=== PATIENT | male | born 1990 | race Two or more races ===

== ENCOUNTER 2017-04-19 17:57 | Emergency (ER) | payer MEDICAID, OTHER, SELFPAY ==
[~2017-04-19] VITALS: Ht 167.6 cm; Wt 56.7 kg
[2017-04-19] MEDS ORDERED: IBUP200C PO (18:02)
[2017-04-19] MEDS ORDERED: ACETAMINOPHEN 325 MG TAB PO ONE (18:30)
[2017-04-19 18:43] LABS: BASO % 0.3 % (0.0-1.0); EOS # 0.1 K/mm3 (0.0-0.50); EOS % 1.9 % (0.0-3.0); LARGE UNSTAINED CELL # 0.1 K/mm3 (0.0-0.4); LARGE UNSTAINED CELL % 1.5 % (0.0-4.0); LYMPH # 2.5 K/mm3 (1.5-6.5); LYMPH % 40.3 % (24.0-44.0); MEAN CORPUSCULAR HGB CONC 34.5 g/dl (32.0-36.5); MEAN CORPUSCULAR VOLUME 89.8 fl (80.0-96.0); MONO # 0.3 K/mm3 (0.0-0.8); MONO % 5.2 % (0.0-5.0); NEUTROPHILS # 3.2 K/mm3 (1.8-7.7); NEUTROPHILS % 50.9 % (36.0-66.0); PLATELET COUNT, AUTOMATED 317 k/mm3 (150-450); RED CELL DISTRIBUTION WIDTH 11.9 % (11.5-14.5); WHITE BLOOD COUNT 6.3 K/mm3 (4.0-10.0)
[2017-04-19 18:59] LABS: ANION GAP 6 MEQ/L (8-16); BLOOD UREA NITROGEN 6 MG/DL (7-18); CALCIUM LEVEL 8.6 MG/DL (8.5-10.1); CARBON DIOXIDE LEVEL 29 MEQ/L (21-32); CHLORIDE LEVEL 104 MEQ/L (98-107); CREATININE FOR GFR 0.84 MG/DL (0.70-1.30); GLOMERULAR FILTRATION RATE > 60.0 (>60); GLUCOSE, FASTING 151 MG/DL (70-105); POTASSIUM SERUM 3.9 MEQ/L (3.5-5.1); SODIUM LEVEL 139 MEQ/L (136-145)
--- NOTE | 2017-04-19 19:23 | REP ---
Clinical: Left groin and testicular pain. Technique: Real time pickard scale and color Doppler evaluation using linear high frequency transducer. Findings: Bilateral testicles demonstrates scattered microcalcifications and are otherwise normal in contour, size, echogenicity and vascularity. There is no evidence for intratesticular mass lesion, infectious/inflammatory process, or torsion. The bilateral epididymi are normal. No hydroceles. No varicoceles. No evidence for inguinal hernia. Two left inguinal lymph nodes measures 17 x 4 x 15 mm and 7 x 3 x 7 mm. Right testicle measures 4.6 x 2.7 x 2.9 cm. Left testicle measures 4.1 x 1.7 x 2.7 cm. Impression: Few scattered intratesticular calcifications. Otherwise normal scrotal ultrasound. Signed by Trenton Martin MD 04/19/2017 07:15 P
[2017-04-19 20:04] VITALS: BP 109/64
[2017-04-19] MEDS ORDERED: NORCOTAB PO (20:13)
--- NOTE | 2017-04-20 15:08 | ED PDOC ---
Post-Departure Follow-Up dr pretty faxed formal report of scrotal us for fu Chandrika Mullen MD April 20, 2017 15:08
== END 2017-04-19 20:18 | disposition home or self-care (01) ==
LOC: M ED 18:32
DX: N50.819 Testicular pain, unspecified (principal); F17.210 Nicotine dependence, cigarettes, uncomplicated

== ENCOUNTER → 2017-05-01 | Outpatient (CLI) | payer MEDICAID ==
[~2017-05-01] MED LIST: IBUP200C PO; ISOVUE-370 76% 100ML VIAL (Q9967) As Ordered ONE; NORCOTAB PO
--- NOTE | 2017-05-01 15:56 | REP ---
CT ABDOMEN: HISTORY: Left inguinal adenopathy and left testicular pain. CONTRAST: 100 mL Isovue-370 The lung bases are clear. The precontrast enhanced portion of the examination shows hepatic and splenic densities to be within normal limits. There are no nephroliths or choleliths. The contrast enhanced portion of the examination shows the liver, gallbladder, spleen, pancreas, adrenal glands and kidneys to be within normal limits. The abdominal aorta and periaortic regions are within normal limits. The bowel loops and their mesenteries are within normal limits. There is no free fluid or free air. There is no evidence of an intraabdominal mass or adenopathy. CT PELVIS: There is no pelvic mass or adenopathy. The bowel loops and the mesenteries appear to be within normal limits. There is no free fluid or free air. There is no evidence of inguinal adenopathy. Bone window technique throughout the exam shows the osseous structures to be within normal limits. IMPRESSION: CT findings are within normal limits. Signed by Ramy Valente DO 05/01/2017 03:57 P
== END ==
LOC: M RAD 15:01
PROVIDERS: ATTEND Nurse Practitioner Women's Health
DX: R10.30 Lower abdominal pain, unspecified (principal); N50.812 Left testicular pain; R59.0 Localized enlarged lymph nodes
CPT/HCPCS: 74178; Q9967

== ENCOUNTER → 2018-04-21 | Outpatient (REF) | payer MEDICAID, OTHER ==
[2018-04-21 12:50] LABS: BASO % 0.3 % (0.0-1.0); EOS # 0.2 10^3/uL (0.0-0.50); EOS % 3.5 % (0.0-3.0); HEMATOCRIT 46.1 % (42.0-52.0); HEMOGLOBIN 15.7 g/dl (13.5-17.5); IMMATURE GRANULOCYTE % 0.2 % (0-3.0); LYMPH % 33.7 % (24.0-44.0); MEAN CORPUSCULAR HGB CONC 34.1 g/dl (32.0-36.5); MONO # 0.4 10^3/uL (0.0-0.8); MONO % 7.3 % (0.0-5.0); NEUTROPHILS # 3.3 10^3/uL (1.8-7.7); PLATELET COUNT, AUTOMATED 321 10^3/uL (150-450); RED BLOOD COUNT 5.24 10^6/uL (4.30-6.10); RED CELL DISTRIBUTION WIDTH 12.3 % (11.5-14.5); WHITE BLOOD COUNT 6.1 10^3/uL (4.0-10.0)
[2018-04-21 12:58] LABS: APPEARANCE, URINE CLEAR (CLEAR); BACTERIA, URINE AUTO NEGATIVE (NEGATIVE); BILIRUBIN, URINE AUTO NEGATIVE (NEGATIVE); BLOOD, URINE BLOOD NEGATIVE (NEGATIVE); COLOR, URINE STRAW (YELLOW); GLUCOSE, URINE (UA) AUTO NEGATIVE (NEGATIVE); KETONE, URINE AUTO NEGATIVE (NEGATIVE); LEUKOCYTE ESTERASE, URINE AUTO NEGATIVE (NEGATIVE); NITRITE, URINE AUTO NEGATIVE (NEGATIVE); PROTEIN, URINE AUTO NEGATIVE (NEGATIVE); RBC, URINE AUTO 0 /HPF (0-3); SPECIFIC GRAVITY URINE AUTO 1.006 (1.002-1.035); SQUAMOUS EPITHELIAL CELL UR AU 0 /HPF (0-6); UROBILINOGEN, URINE AUTO 0.2 mg/dL (0.0-2.0); WBC, URINE AUTO 1 /HPF (0-3)
[2018-04-21 13:48] LABS: ALBUMIN 4.3 GM/DL (3.2-5.2); ALBUMIN/GLOBULIN RATIO 1.23 (1.00-1.93); ALKALINE PHOSPHATASE 88 U/L (45-117); ALT/SGPT 25 U/L (12-78); ANION GAP 5 MEQ/L (8-16); AST/SGOT 25 U/L (7-37); BILIRUBIN,TOTAL 0.3 MG/DL (0.2-1.0); BLOOD UREA NITROGEN 5 MG/DL (7-18); CALCIUM LEVEL 9.6 MG/DL (8.5-10.1); CARBON DIOXIDE LEVEL 30 MEQ/L (21-32); CHLORIDE LEVEL 107 MEQ/L (98-107); CHOLESTEROL LEVEL 154 MG/DL (<200); CHOLESTEROL RISK RATIO 3.666 (<5); CREATININE FOR GFR 0.69 MG/DL (0.70-1.30); GLOMERULAR FILTRATION RATE > 60.0 (>60); GLUCOSE, FASTING 93 MG/DL (70-100); HDL CHOLESTEROL 42 MG/DL (>40); LDL CHOLESTEROL 89.8 MG/DL (<100); NON-HDL-C 112 MG/DL; POTASSIUM SERUM 4.7 MEQ/L (3.5-5.1); SODIUM LEVEL 142 MEQ/L (136-145); TOTAL PROTEIN 7.8 GM/DL (6.4-8.2); TRIGLYCERIDES LEVEL 111 MG/DL (<150)
[2018-04-22 10:40] LABS: HIV 1&2 SCREEN CENTAUR NEGATIVE (NEGATIVE)
== END ==
LOC: M LAB REF 11:58
DX: R39.15 Urgency of urination (principal); R53.83 Other fatigue; Z13.220 Encounter for screening for lipoid disorders

== ENCOUNTER → 2019-10-07 | Outpatient (REF) | payer OTHER, MEDICAID ==
[~2019-10-07] MED LIST changes: +HYDR-3715 PO; -IBUP200C PO; +IBUP200C25 PO; -ISOVUE-370 76% 100ML VIAL (Q9967) As Ordered ONE; -NORCOTAB PO
[2019-10-07 17:10] LABS: BASO % 0.6 % (0.0-1.0); EOS # 0.2 10^3/uL (0.0-0.5); EOS % 3.4 % (0.0-3.0); HEMOGLOBIN 14.8 g/dl (13.5-17.5); LYMPH # 2.1 10^3/uL (1.5-5.0); LYMPH % 34.4 % (24.0-44.0); MEAN CORPUSCULAR HEMOGLOBIN 30.2 pg (27.0-33.0); MEAN CORPUSCULAR HGB CONC 33.6 g/dl (32.0-36.5); MEAN CORPUSCULAR VOLUME 89.8 fl (80.0-96.0); MONO # 0.5 10^3/uL (0.0-0.8); MONO % 8.8 % (0.0-5.0); NEUTROPHILS # 3.2 10^3/uL (1.5-8.5); NEUTROPHILS % 52.6 % (36.0-66.0); PLATELET COUNT, AUTOMATED 265 10^3/uL (150-450); WHITE BLOOD COUNT 6.2 10^3/uL (4.0-10.0)
[2019-10-07 17:21] LABS: ALBUMIN 3.8 GM/DL (3.2-5.2); ALT/SGPT 25 U/L (12-78); BILIRUBIN,TOTAL 0.3 MG/DL (0.2-1.0); BLOOD UREA NITROGEN 6 MG/DL (7-18); CALCIUM LEVEL 9.2 MG/DL (8.5-10.1); CARBON DIOXIDE LEVEL 33 MEQ/L (21-32); CHLORIDE LEVEL 106 MEQ/L (98-107); CHOLESTEROL LEVEL 172 MG/DL (<200); CREATININE FOR GFR 0.72 MG/DL (0.70-1.30); FREE T4 0.99 NG/DL (0.76-1.46); GLOMERULAR FILTRATION RATE > 60.0 (>60); GLUCOSE, FASTING 95 MG/DL (70-100); HDL CHOLESTEROL 40 MG/DL (>40); LDL CHOLESTEROL 96 MG/DL (<100); NON-HDL-C 132 MG/DL; POTASSIUM SERUM 4.5 MEQ/L (3.5-5.1); SODIUM LEVEL 139 MEQ/L (136-145); TOTAL 25(OH) VITAMIN D 13.4 NG/ML (30.0-100.0); TOTAL PROTEIN 7.3 GM/DL (6.4-8.2); TRIGLYCERIDES LEVEL 178 MG/DL (<150)
[2019-10-07 17:25] LABS: HEMOGLOBIN A1c 5.3 %
== END ==
LOC: M LAB REF 16:01
PROVIDERS: ATTEND Family Medicine
DX: Z13.228 Encounter for screening for other metabolic disorders (principal)

== ENCOUNTER → 2019-12-13 | Outpatient (CLI) | payer OTHER, MEDICAID ==
[~2019-12-13] MED LIST changes: +BUPIVACAINE HCL 0.25% 30 ML VIAL As Ordered ONE; +NORCO, ANEXSIA 5/325MG TABLET (HYDROcodone/ACETAMINOPHEN) As Ordered ONE; +TRIAMCINOLONE ACETONIDE SUSP 40 MG/ML VIAL (J3301) As Ordered ONE; +diazePAM 5 MG TAB As Ordered ONE
--- NOTE | 2019-12-24 04:19 | ECWPNPC ---
PATIENT NAME: ROSEMARIE BLAND : 1990 GENDER: MALE VISIT DATE: 12/13/2019 DISCHARGE DATE: 12/13/19 1223 VISIT LOCKED DATE TIME: PHYSICIAN: MARV CAMACHO MD RESOURCE: MARV CAMACHO MD REASON FOR APPOINTMENT 1. TPI BILAT NECK HISTORY OF PRESENT ILLNESS HISTORY OF PRESENT ILLNESS: PAIN THE PATIENT DESCRIBES THE PAIN... FALL RISK SCREENING: SCREENING :NO FALLS REPORTED IN THE LAST YEAR CURRENT MEDICATIONS TAKING MOBIC 7.5 MG TABLET 1 TABLET ORALLY ONCE A DAY, NOTES: 12/12/19 1800 TAKING DEPAKOTE 500 MG TABLET DELAYED RELEASE 1 TABLET ORALLY TWICE A DAY, NOTES: 12/12/19 1800 NOT-TAKING NAPROXEN SODIUM 550 MG TABLET 1 TABLET ORALLY TWICE A DAY NOT-TAKING BACTRIM DS 800-160 TABLET 1 TABLET ORALLY TWICE A DAY NOT-TAKING NAPROXEN 500 MG TABLET 1 TABLET NEEDED ORALLY EVERY 12 HRS NOT-TAKING IBUPROFEN 200 MG TABLET 1 TABLET WITH FOOD OR MILK NEEDED ORALLY EVERY 6 HRS MEDICATION LIST REVIEWED AND RECONCILED WITH THE PATIENT PAST MEDICAL HISTORY MEMORY IMPAIRMENT INJURY OF BLOOD VESSELS OF HEAD, NEC, SUBS TRANSIENT ALTERATION OF AWARENESS SYNCOPE AND COLLAPSE CERVICALGIA BILAT CARPAL TUNNEL SYNDROME SLEEP DISORDER ALLERGIES N.K.D.A. SURGICAL HISTORY RIGHT WRIST CYST DOUBLE HERIA SURGERY INFANT RIGHT WRIST CYST REMOVED 2003 & 2006 FAMILY HISTORY FATHER: ALIVE MOTHER: ALIVE, DIAGNOSED WITH UNSPECIFIED CEREBRAL ARTERY OCCLUSION WITH CEREBRAL INFARCTION SIBLINGS: OVARIAN CANCER PATERNAL GRAND FATHER: PROSTATE, OTHER MALIGNANT NEOPLASM OF UNSPECIFIED SITE 2 SISTER(S) . SOCIAL HISTORY GENERAL: TOBACCO USE ARE YOU A:CURRENT SMOKER ARE YOU INTERESTED IN QUITTING?NOT READY TO QUIT COUNSELED THE PATIENT ON SMOKING EFFECTS, EDUCATION [id number]/09/2020 HOW MANY CIGARETTES A DAY DO YOU SMOKE?6-10 PATIENT COUNSELED ON THE DANGERS OF TOBACCO USE AND URGED TO QUIT:12/09/2019 PAIN CLINIC PFS, CLERGY, PUBLIC HEALTH REFERRALS HAS THE PATIENT BEEN EDUCATED REGARDING HIS/HER PLAN OF CARE?YES HAS THE PATIENT BEEN EDUCATED REGARDING PAIN, THE RISK FOR PAIN, THE IMPORTANCE OF EFFECTIVE PAIN MANAGEMENT, AND THE PAIN ASSESSMENT PROCESS?YES CAFFEINE CAFFEINE USE?YES HOW OFTEN AND HOW MUCH? 36OZ COFFEE A DAY ADVANCE DIRECTIVE ADVANCE DIRECTIVE DISCUSSED WITH PATIENT:YES DECLINED SIKHISM [id number] NONE LANGUAGE LANGUAGES SPOKEN:[place] DOMESTIC VIOLENCE DO YOU FEEL SAFE IN YOUR ENVIRONMENT?YES ALCOHOL SCREENING DID YOU HAVE A DRINK CONTAINING ALCOHOL IN THE PAST YEAR?YES HOW OFTEN DID YOU HAVE SIX OR MORE DRINKS ON ONE OCCASION IN THE PAST YEAR?NEVER (0 POINTS) HOW MANY DRINKS DID YOU HAVE ON A TYPICAL DAY WHEN YOU WERE DRINKING IN THE PAST YEAR?1 OR 2 (0 POINTS) HOW OFTEN DID YOU HAVE A DRINK CONTAINING ALCOHOL IN THE PAST YEAR?MONTHLY OR LESS (1 POINT) POINTS1 INTERPRETATIONNEGATIVE RECREATIONAL DRUG USE DRUG USE?YES HOW OFTEN AND HOW MUCH? CLEMENTE LEARNING BARRIERS / SPECIAL NEEDS BARRIERS TO LEARNING?YES COMMENTS LIMITED READING ABILITY HEARING IMPAIRED?YES VISION IMPAIRED?NO COGNITIVELY IMPAIRED?NO :HEARING AIDES READINESS TO LEARN?YES LEARNING PREFERENCES?YES :BOOKLETS, HANDOUTS, DEMONSTRATION/VERBAL INSTRUCTION LEARNING CAPABILITIES PRESENT?YES EMOTIONAL BARRIERS?NO SPECIAL DEVICES?NO PRE PROCEDURE PHONE CALL COMPLETED 12/09/19 [id number] NL. HOSPITALIZATION/MAJOR DIAGNOSTIC PROCEDURE NO HOSPITALIZATION HISTORY. REVIEW OF SYSTEMS REVIEWED BY: PROVIDER: . CONSTITUTIONAL: ANY CHANGE IN YOUR MEDICAL CONDITION? NO . CHILLS NO . FEVER NO . INFECTION: DO YOU HAVE NEW INFECTIONS? NO . DO YOU HAVE HISTORY OF MRSA? NO . MUSCULOSKELETAL: ANY NEW PATTERNS OF PAIN OR NUMBNESS? NO . GASTROENTEROLOGY: ANY NEW CHANGE IN BOWEL CONTROL? NO . GENITOURINARY: ANY NEW CHANGE IN BLADDER CONTROL? NO . IS THERE A CHANCE YOU COULD BE ? NO . HEMATOLOGY/LYMPH: DO YOU TAKE ANY BLOOD THINNERS? (FOR EXAMPLE- COUMADIN, PLAVIX, AGGRENOX, PLATEL, PRADAXA, OR XARELTO) NO . WHEN WAS YOUR LAST DOSE? DATE: TIME: . NEUROLOGY: HAVE YOU FALLEN IN THE PAST 12 MONTHS? NO . ANY NEW EXTREMITY NUMBNESS OR WEAKNESS? NO . CARDIOLOGY: DO YOU HAVE A PACEMAKER OR DEFIBRILLATOR? NO . RESPIRATORY: HAVE YOU BEEN SICK IN THE PAST WEEK? NO . FEVER NO . FLU LIKE SYMPTOMS? NO . COUGH NO . INTEGUMENTARY: DO YOU HAVE ANY RASHES OR OPEN SORES? NO . ALLERGIC/IMMUNO: ARE YOU ALLERGIC TO IV DYE? NO . ANY NEW ALLERGIES? NO . PSYCHIATRIC: DO YOU HAVE THOUGHTS OF HURTING YOURSELF OR SOMEONE ELSE? NO . ARE YOU ABUSED, NEGLECTED, OR IN AN UNSAFE ENVIRONMENT? NO . ENDOCRINOLOGY: ARE YOU DIABETIC? NO . OTHER: DO YOU NEED ANY PRESCRIPTIONS? NO . IF YES, PLEASE LIST: ____ . ANY NEW PROBLEMS WITH YOUR MEDICATIONS? NO . WHEN DID YOU LAST EAT? 12/12/19 1730 . WHEN DID YOU LAST DRINK? 12/13/19 0700 . WHAT DID YOU LAST DRINK? WATER . NAME OF PERSON DRIVING YOU HOME? GRIFFIN BLNAD- MOTHER . DO YOU HAVE ANY OTHER QUESTIONS OR CONCERNS NO . VITAL SIGNS WT 135 LBS, HT 67 IN, BMI 21.14 INDEX, BP 113/67 MM HG, HR 74 /MIN, RR 16 /MIN, TEMP 97.9 F, OXYGEN SAT % 100%, SAFE IN ENV? (Y/N) YES, NA INITIALS SC 10:39, REVIEWED BY: CAYLA. ASSESSMENTS MYALGIA, OTHER SITE - M79.18 (PRIMARY) PROCEDURES PN TRIGGER POINT INJECTION WITH STEROIDS PRE PROCEDURE DIAGNOSIS 1. MYALGIA 2. PAIN AT BILATERAL NECK AREA POST PROCEDURE DIAGNOSIS 1. MYALGIA 2. PAIN AT BILATERAL NECK AREA PROCEDURE TRIGGER POINT INJECTION AT RIGHT AND LEFT NECK AREA SURGEON DR. MARV CAMACHO CAST IRON DIPPER NONE ANESTHESIA LOCAL PRE PROCEDURE NOTE THE PATIENT HAS A HISTORY OF CHRONIC PAIN AT THE RIGHT AND LEFT NECK AREA. I EVALUATED THE PATIENT AND REVIEWED THE CHART. THERE IS EVIDENCE OF BANDS OF TISSUE WITH RESTRICTION OF MOVEMENT AND PRESENCE OF TRIGGER POINT AT THE AFFECTED AREA. I WENT OVER THE RISKS, ALTERNATIVES, AND BENEFITS ASSOCIATED WITH THIS PROCEDURE. THE PATIENT WOULD LIKE TO PROCEED AND GIVES CONSENT TO PERFORM THE PROCEDURE. THE PATIENT DENIES UNEXPLAINABLE WEIGHT LOSS, FEVER, CHILLS, OR NEW CHANGES IN URINARY OR BOWEL CONTROL DESCRIPTION OF PROCEDURE THE PATIENT WAS BROUGHT TO THE PROCEDURE ROOM AND PLACED IN THE SITTING POSITION. THE AREA WAS CLEANED WITH ALCOHOL. THE PROCEDURE WAS DONE USING ASEPTIC STERILE TECHNIQUE. I CHECKED LATERALITY AND THE LEVEL WHERE THE PROCEDURE WAS GOING TO BE PERFORMED WITH THE PATIENT AND THE SUPPORTING STAFF AT THE MOMENT OF THE TIME OUT IN THE PROCEDURE ROOM. USING A 25-GAUGE NEEDLE, TRIGGER POINTS WERE INJECTED AT THE LEFT NECK AREA AND RIGHT NECK AREA WITH A TOTAL OF 40 ML OF BUPIVACAINE 0.25% AND KENALOG 40 MG. THERE WAS NO EVIDENCE OF BLOOD, PARESTHESIA OR CEREBROSPINAL FLUID DURING THE PROCEDURE. THE PATIENT WAS SENT TO THE RECOVERY ROOM. THE PATIENT WAS MOVING THE EXTREMITIES AND DOING WELL. THERE WAS NO COMPLICATION DURING THE PROCEDURE POST PROCEDURE NOTE THE PATIENT WILL BE SEEN IN A FOLLOWUP IN THE NEXT FEW WEEKS. I AM LOOKING FOR LONG-LASTING PAIN RELIEF WITH THIS INTERVENTION. INSTRUCTIONS WERE GIVEN, QUESTIONS WERE ANSWERED, AND THE PATIENT EXPRESSED UNDERSTANDING AND AGREES WITH THE PLAN. I, RAVEN ROCKWELL, DOCUMENTED THE ABOVE INFORMATION ACTING A SCRIBE FOR DR. CAMACHO. I HAVE REVIEWED THE ABOVE DOCUMENT, WRITTEN BY JESUS DURAN, AND I VERIFY THAT IT IS ACCURATE PROCEDURE CODES 92389 INJECT TRIGGER POINT, 1 OR 2 DISPOSITION & COMMUNICATION FOLLOW UP 3 WEEKS ELECTRONICALLY SIGNED BY MARV CAMACHO MD, MD ON 12/23/2019 AT 10:23 AM EST DISCLAIMER : THIS IS A VISIT SUMMARY EXTRACTED FROM THE [email or web address] CHART. IT IS NOT A COPY OF THE [email or web address] PROGRESS NOTE. MARINA
== END ==
LOC: M PAIN 10:30
PROVIDERS: ATTEND Anesthesiology
DX: M79.18 Myalgia, other site (principal); F17.210 Nicotine dependence, cigarettes, uncomplicated; Z79.899 Other long term (current) drug therapy
CPT/HCPCS: 20552; J3301

== ENCOUNTER → 2019-12-30 | Outpatient (CLI) | payer OTHER, MEDICAID ==
[~2019-12-30] MED LIST changes: -BUPIVACAINE HCL 0.25% 30 ML VIAL As Ordered ONE; -NORCO, ANEXSIA 5/325MG TABLET (HYDROcodone/ACETAMINOPHEN) As Ordered ONE; -TRIAMCINOLONE ACETONIDE SUSP 40 MG/ML VIAL (J3301) As Ordered ONE; -diazePAM 5 MG TAB As Ordered ONE
--- NOTE | 2020-01-01 07:43 | ECWPNPC ---
PATIENT NAME: ROSEMARIE BLAND : 1990 GENDER: MALE VISIT DATE: 12/30/2019 DISCHARGE DATE: 12/30/19 1022 VISIT LOCKED DATE TIME: PHYSICIAN: JUSTICE GUEVARA RESOURCE: JUSTICE GUEVARA REASON FOR APPOINTMENT 1. POST TPI HISTORY OF PRESENT ILLNESS HISTORY OF PRESENT ILLNESS: HERE FOR POST PROCEDURE F/U.HAD BILAT. TPI NECK ON 12/13/2019.REPORTING MARKED REDUCTION IN PAIN THAT CONTINUES TODAY.HAS YET TO ATTEND PT.I WILL GIVE HIM ANOTHER PRESCRIPTION FOR THIS TODAY.RATING PAIN VAS 4/10. PAIN THE PATIENT DESCRIBES THE PAIN... FALL RISK SCREENING: SCREENING :NO FALLS REPORTED IN THE LAST YEAR GENERAL: -. PAIN SCREENING: PATIENT HAS A COMPLAINT OF ACUTE OR CHRONIC PAIN :YES LOCATION OF PAIN:NECK INTENSITY OF PAIN (SCALE OF 1 TO 10):4 NURSING NOTE: -. CURRENT MEDICATIONS TAKING MOBIC 7.5 MG TABLET 1 TABLET ORALLY ONCE A DAY, NOTES: 12/12/19 1800 TAKING DEPAKOTE 500 MG TABLET DELAYED RELEASE 1 TABLET ORALLY TWICE A DAY, NOTES: 12/12/19 1800 TAKING CYMBALTA 20 MG CAPSULE DELAYED RELEASE PARTICLES 1 CAPSULE ORALLY ONCE A DAY NOT-TAKING NAPROXEN SODIUM 550 MG TABLET 1 TABLET ORALLY TWICE A DAY NOT-TAKING BACTRIM DS 800-160 TABLET 1 TABLET ORALLY TWICE A DAY NOT-TAKING NAPROXEN 500 MG TABLET 1 TABLET NEEDED ORALLY EVERY 12 HRS NOT-TAKING IBUPROFEN 200 MG TABLET 1 TABLET WITH FOOD OR MILK NEEDED ORALLY EVERY 6 HRS MEDICATION LIST REVIEWED AND RECONCILED WITH THE PATIENT PAST MEDICAL HISTORY MEMORY IMPAIRMENT INJURY OF BLOOD VESSELS OF HEAD, NEC, SUBS TRANSIENT ALTERATION OF AWARENESS SYNCOPE AND COLLAPSE CERVICALGIA BILAT CARPAL TUNNEL SYNDROME SLEEP DISORDER ANXIETY ALLERGIES N.K.D.A. SURGICAL HISTORY RIGHT WRIST CYST DOUBLE HERIA SURGERY RIGHT WRIST CYST REMOVED 2003 & 2006 FAMILY HISTORY FATHER: ALIVE MOTHER: ALIVE, DIAGNOSED WITH UNSPECIFIED CEREBRAL ARTERY OCCLUSION WITH CEREBRAL INFARCTION SIBLINGS: OVARIAN CANCER PATERNAL GRAND FATHER: PROSTATE, OTHER MALIGNANT NEOPLASM OF UNSPECIFIED SITE 2 SISTER(S) . SOCIAL HISTORY GENERAL: TOBACCO USE ARE YOU A:CURRENT SMOKER HOW MANY CIGARETTES A DAY DO YOU SMOKE?6-10 ARE YOU INTERESTED IN QUITTING?NOT READY TO QUIT PATIENT COUNSELED ON THE DANGERS OF TOBACCO USE AND URGED TO QUIT:12/09/2019 COUNSELED THE PATIENT ON SMOKING EFFECTS, EDUCATION [id number]/09/2020 PAIN CLINIC PFS, CLERGY, PUBLIC HEALTH REFERRALS HAS THE PATIENT BEEN EDUCATED REGARDING HIS/HER PLAN OF CARE?YES HAS THE PATIENT BEEN EDUCATED REGARDING PAIN, THE RISK FOR PAIN, THE IMPORTANCE OF EFFECTIVE PAIN MANAGEMENT, AND THE PAIN ASSESSMENT PROCESS?YES CAFFEINE CAFFEINE USE?YES HOW OFTEN AND HOW MUCH? 36OZ COFFEE A DAY ADVANCE DIRECTIVE ADVANCE DIRECTIVE DISCUSSED WITH PATIENT:YES DECLINED ORTHODOXY [id number] NONE LANGUAGE LANGUAGES SPOKEN:[place] DOMESTIC VIOLENCE DO YOU FEEL SAFE IN YOUR ENVIRONMENT?YES ALCOHOL SCREENING DID YOU HAVE A DRINK CONTAINING ALCOHOL IN THE PAST YEAR?YES HOW OFTEN DID YOU HAVE SIX OR MORE DRINKS ON ONE OCCASION IN THE PAST YEAR?NEVER (0 POINTS) HOW MANY DRINKS DID YOU HAVE ON A TYPICAL DAY WHEN YOU WERE DRINKING IN THE PAST YEAR?1 OR 2 (0 POINTS) HOW OFTEN DID YOU HAVE A DRINK CONTAINING ALCOHOL IN THE PAST YEAR?MONTHLY OR LESS (1 POINT) POINTS1 INTERPRETATIONNEGATIVE RECREATIONAL DRUG USE DRUG USE?YES HOW OFTEN AND HOW MUCH? CLEMENTE LEARNING BARRIERS / SPECIAL NEEDS BARRIERS TO LEARNING?YES COMMENTS LIMITED READING ABILITY HEARING IMPAIRED?YES VISION IMPAIRED?NO COGNITIVELY IMPAIRED?NO :HEARING AIDES READINESS TO LEARN?YES LEARNING PREFERENCES?YES :BOOKLETS, HANDOUTS, DEMONSTRATION/VERBAL INSTRUCTION LEARNING CAPABILITIES PRESENT?YES EMOTIONAL BARRIERS?NO SPECIAL DEVICES?NO PRE PROCEDURE PHONE CALL COMPLETED 12/09/19 [id number] [facility]. HOSPITALIZATION/MAJOR DIAGNOSTIC PROCEDURE DENIES PAST HOSPITALIZATION REVIEW OF SYSTEMS REVIEWED BY: PROVIDER: JUSTICE ESPINOZA . CONSTITUTIONAL: ANY CHANGE IN YOUR MEDICAL CONDITION? YES, CYMBALTA PRESCRIBED FOR ANXIETY . CHILLS NO . FEVER NO . INFECTION: DO YOU HAVE NEW INFECTIONS? NO . DO YOU HAVE HISTORY OF MRSA? NO . MUSCULOSKELETAL: ANY NEW PATTERNS OF PAIN OR NUMBNESS? NO . GASTROENTEROLOGY: ANY NEW CHANGE IN BOWEL CONTROL? NO . GENITOURINARY: ANY NEW CHANGE IN BLADDER CONTROL? NO . IS THERE A CHANCE YOU COULD BE ? NO . HEMATOLOGY/LYMPH: DO YOU TAKE ANY BLOOD THINNERS? (FOR EXAMPLE- COUMADIN, PLAVIX, AGGRENOX, PLATEL, PRADAXA, OR XARELTO) NO . WHEN WAS YOUR LAST DOSE? DATE: TIME: . NEUROLOGY: HAVE YOU FALLEN IN THE PAST 12 MONTHS? YES, PRIOR TO LAST VISIT . ANY NEW EXTREMITY NUMBNESS OR WEAKNESS? NO . CARDIOLOGY: DO YOU HAVE A PACEMAKER OR DEFIBRILLATOR? NO . RESPIRATORY: HAVE YOU BEEN SICK IN THE PAST WEEK? NO . FEVER YES, RESOLVING . FLU LIKE SYMPTOMS? NO . COUGH YES, RESOLVING . INTEGUMENTARY: DO YOU HAVE ANY RASHES OR OPEN SORES? NO . ALLERGIC/IMMUNO: ARE YOU ALLERGIC TO IV DYE? NO . ANY NEW ALLERGIES? NO . PSYCHIATRIC: DO YOU HAVE THOUGHTS OF HURTING YOURSELF OR SOMEONE ELSE? NO . ARE YOU ABUSED, NEGLECTED, OR IN AN UNSAFE ENVIRONMENT? NO . ENDOCRINOLOGY: ARE YOU DIABETIC? NO . OTHER: DO YOU NEED ANY PRESCRIPTIONS? YES, MUSCLE RELAXER? . IF YES, PLEASE LIST: ____ . ANY NEW PROBLEMS WITH YOUR MEDICATIONS? NO . WHEN DID YOU LAST EAT? ____ . WHEN DID YOU LAST DRINK? ____ . WHAT DID YOU LAST DRINK? ____ . NAME OF PERSON DRIVING YOU HOME? ____ . DO YOU HAVE ANY OTHER QUESTIONS OR CONCERNS NO . VITAL SIGNS WT 130.4 LBS, HT 67 IN, BMI 20.42 INDEX, BP 134/70 MM HG, HR 91 /MIN, RR 20 /MIN, TEMP 98.3 F, OXYGEN SAT % 98, SAFE IN ENV? (Y/N) YES, PAIN SCALE 4A. PATRICIA SANDOVAL. EXAMINATION GENERAL: EXAM DEFERRED DUE TO ILLNESS. ASSESSMENTS MYALGIA, OTHER SITE - M79.18 (PRIMARY) TREATMENT MYALGIA, OTHER SITE NOTES: PT 2X WK X6 WK-MYOFASCIAL RELEASE -NECK-DX MYOFASCIAL PAIN SYNDROME. PROCEDURE CODES FA211 ESTABILISHED PATIENT [facility] CHARGE DISPOSITION & COMMUNICATION FOLLOW UP 2 MONTHS (REASON: F/U PT) ELECTRONICALLY SIGNED BY ALEXIS TAMEZ ON 12/31/2019 AT 09:04 AM EST DISCLAIMER : THIS IS A VISIT SUMMARY EXTRACTED FROM THE [employer] CHART. IT IS NOT A COPY OF THE [employer] PROGRESS NOTE. MARINA
== END ==
LOC: M PAIN 09:30
PROVIDERS: ATTEND Nurse Practitioner Family
DX: M79.18 Myalgia, other site (principal); Z86.59 Personal history of other mental and behavioral disorders; F17.210 Nicotine dependence, cigarettes, uncomplicated; Z79.899 Other long term (current) drug therapy

== ENCOUNTER → 2020-04-10 | Outpatient (CLI) | payer OTHER, MEDICAID ==
--- NOTE | 2020-04-12 04:07 | ECWPNPC ---
PATIENT NAME: ROSEMARIE BLAND : 1990 GENDER: MALE VISIT DATE: 04/10/2020 DISCHARGE DATE: 04/10/20 1048 VISIT LOCKED DATE TIME: PHYSICIAN: JUSTICE GUEVARA RESOURCE: JUSTICE GUEVARA REASON FOR APPOINTMENT 1. PREPROCEDURE 4-6 WEEKS- PRE VISIT PHONE CALL COMPLETED HISTORY OF PRESENT ILLNESS HISTORY OF PRESENT ILLNESS: HERE FOR PREPROCEDURE VISIT. CONTINUES WITH NECK PAIN. ATTENDING PHYSICAL THERAPY THAT HE FINDS SOMEWHAT HELPFUL. STATES LEFT SIDE OF NECK IS ALSO INVOLVED NOW. RATING PAIN LEVEL A 6/10 VAS. HAS RESPONDED WELL TO TRIGGER POINT INJECTIONS IN THE PAST. DISCUSSED MEDICATION AND TREATMENT OPTIONS. PAIN THE PATIENT DESCRIBES THE PAIN... FALL RISK SCREENING: SCREENING :NO FALLS REPORTED IN THE LAST YEAR CURRENT MEDICATIONS TAKING MOBIC 7.5 MG TABLET 1 TABLET ORALLY ONCE A DAY TAKING DEPAKOTE 500 MG TABLET DELAYED RELEASE 1 TABLET ORALLY TWICE A DAY TAKING CYMBALTA 30 MG CAPSULE DELAYED RELEASE PARTICLES 1 CAPSULE ORALLY ONCE A DAY NOT-TAKING NAPROXEN SODIUM 550 MG TABLET 1 TABLET ORALLY TWICE A DAY NOT-TAKING BACTRIM DS 800-160 TABLET 1 TABLET ORALLY TWICE A DAY NOT-TAKING NAPROXEN 500 MG TABLET 1 TABLET NEEDED ORALLY EVERY 12 HRS NOT-TAKING IBUPROFEN 200 MG TABLET 1 TABLET WITH FOOD OR MILK NEEDED ORALLY EVERY 6 HRS MEDICATION LIST REVIEWED AND RECONCILED WITH THE PATIENT PAST MEDICAL HISTORY MEMORY IMPAIRMENT INJURY OF BLOOD VESSELS OF HEAD, NEC, SUBS TRANSIENT ALTERATION OF AWARENESS SYNCOPE AND COLLAPSE CERVICALGIA BILAT CARPAL TUNNEL SYNDROME SLEEP DISORDER ANXIETY ALLERGIES CHLORINE: EYEDAMAGE - SIDE EFFECTS SURGICAL HISTORY RIGHT WRIST CYST DOUBLE HERNIA SURGERY RIGHT WRIST CYST REMOVED 2003 & 2006 FAMILY HISTORY FATHER: ALIVE MOTHER: ALIVE, DIAGNOSED WITH UNSPECIFIED CEREBRAL ARTERY OCCLUSION WITH CEREBRAL INFARCTION SIBLINGS: OVARIAN CANCER PATERNAL GRAND FATHER: PROSTATE, OTHER MALIGNANT NEOPLASM OF UNSPECIFIED SITE 2 SISTER(S) . SOCIAL HISTORY GENERAL: TOBACCO USE ARE YOU A:CURRENT SMOKER ARE YOU INTERESTED IN QUITTING?THINKING ABOUT QUITTING HOW MANY CIGARETTES A DAY DO YOU SMOKE?6-10 PATIENT COUNSELED ON THE DANGERS OF TOBACCO USE AND URGED TO QUIT:04/07/2020 LATEX QUESTIONNAIRE LATEX ALLERGY : HAVE YOU EVER DEVELOPED ANY TYPE OF REACTION AFTER HANDLING LATEX PRODUCTS SUCH RUBBER GLOVES, CONDOMS, DIAPHRAGMS, BALLOONS, SOCKS, OR UNDERWEAR?NO LATEX ALLERGY : HAVE YOU EVER DEVELOPED ANY TYPE OF REACTION DURING OR AFTER DENTAL APPOINTMENT, VAGINAL/RECTAL EXAMINATION, SURGICAL PROCEDURE, OR ANY OTHER EXPOSURE?NO LATEX RISK : HAVE YOU EVER HAD ANY DIFFICULTY BREATHING OR HIVES AFTER EATING OR HANDLING ANY FRUITS, OR VEGETABLES; SUCH KIWI, BANANAS, STONE FRUITS, OR CHESTNUTSNO LATEX RISK : DO YOU HAVE A PREVIOUS PERSONAL HISTORY OF MORE THAN NINE SURGERIES, SPINA BIFIDA, OR REPEATED CATHERIZATIONS? NO LATEX RISK : ARE YOU FREQUENTLY EXPOSED TO LATEX PRODUCTS IN YOUR OCCUPATION?NO DATE ASKED : 04/07/2020 ALCOHOL SCREENING DID YOU HAVE A DRINK CONTAINING ALCOHOL IN THE PAST YEAR?YES HOW OFTEN DID YOU HAVE A DRINK CONTAINING ALCOHOL IN THE PAST YEAR?MONTHLY OR LESS (1 POINT) HOW MANY DRINKS DID YOU HAVE ON A TYPICAL DAY WHEN YOU WERE DRINKING IN THE PAST YEAR?1 OR 2 (0 POINTS) HOW OFTEN DID YOU HAVE SIX OR MORE DRINKS ON ONE OCCASION IN THE PAST YEAR?NEVER (0 POINTS) POINTS1 INTERPRETATIONNEGATIVE RECREATIONAL DRUG USE DRUG USE?YES HOW OFTEN AND HOW MUCH? MARIJIANA- DAILY CAFFEINE CAFFEINE USE?YES HOW OFTEN AND HOW MUCH? 36OZ COFFEE A DAY CHURCH [id number] NONE LANGUAGE LANGUAGES SPOKEN:BRITISH VIRGIN ISLANDER LEARNING BARRIERS / SPECIAL NEEDS BARRIERS TO LEARNING?YES COMMENTS LIMITED READING ABILITY HEARING IMPAIRED?YES VISION IMPAIRED?NO COGNITIVELY IMPAIRED?NO :HEARING AIDES READINESS TO LEARN?YES LEARNING PREFERENCES?YES :BOOKLETS, HANDOUTS, DEMONSTRATION/VERBAL INSTRUCTION LEARNING CAPABILITIES PRESENT?YES EMOTIONAL BARRIERS?NO SPECIAL DEVICES?NO DOMESTIC VIOLENCE DO YOU FEEL SAFE IN YOUR ENVIRONMENT?YES NEW PATIENT PAIN DIARY TODAY'S VISITNOTES 04/07/2020 PATIENT DESCRIBES PAIN :ACHING, IT COMES AND GOES FROM 0-10, WHAT LEVEL IS YOUR PAIN TODAY?3 PRECIPITATING FACTORS NOTHING ALLEVIATING FACTORS LAYING DOWN HAVE YOU BEEN SICK IN THE LAST WEEK (COLD, COUGH, FEVER, FLU, ETC)YES HAD A STOMACH BUG YESTERDAY DO YOU HAVE ANY RASHES OR OPEN SORES?NO ANY CHANGE IN BOWEL OR BLADDER CONTROL?NO ARE YOU ALLERGIC TO SHELLFISH OR IV DYE?NO ARE YOU DIABETIC?NO DO YOU HAVE A PACEMAKER OR DEFIBRILLATOR?NO ANY NEW PROBLEMS WITH MEDICINES OR NEW ALLERGIESNO WILL BE DISCUSSING CYMBALTA WITH JOSE WAITE DUE TO SHAKINESS IN HANDS ANY NEW PATTERNS OF PAIN OR NUMBNESS?NO ANY CHANGE IN YOUR MEDICAL CONDITION?NO HAVE YOU FALLEN IN THE LAST 6 MONTHS?YES DO YOU USE ANY TYPE OF TOBACCO (SMOKE, SMOKELESS, CHEW, ETC.)YES ARE YOU ABUSED, NEGLECTED, OR IN AN UNSAFE ENVIRONMENT?NO DO YOU HAVE THOUGHTS OF HURTING YOURSELF OR SOMEONE ELSE?NO DO YOU NEED ANY PRESCRIPTIONS?NO DO YOU HAVE ANY OTHER QUESTIONS OR CONCERNS?NO PAIN CLINIC PFS, CLERGY, PUBLIC HEALTH REFERRALS HAS THE PATIENT BEEN EDUCATED REGARDING HIS/HER PLAN OF CARE?YES HAS THE PATIENT BEEN EDUCATED REGARDING PAIN, THE RISK FOR PAIN, THE IMPORTANCE OF EFFECTIVE PAIN MANAGEMENT, AND THE PAIN ASSESSMENT PROCESS?YES ADVANCE DIRECTIVE ADVANCE DIRECTIVE DISCUSSED WITH PATIENT:YES DECLINED PRE PROCEDURE PHONE CALL COMPLETED 12/09/19 [id number] [facility]. HOSPITALIZATION/MAJOR DIAGNOSTIC PROCEDURE NO HOSPITALIZATION HISTORY. REVIEW OF SYSTEMS REVIEWED BY: PROVIDER: JUSTICE ESPINOZA . CONSTITUTIONAL: ANY CHANGE IN YOUR MEDICAL CONDITION? NO . CHILLS NO . FEVER NO . INFECTION: DO YOU HAVE NEW INFECTIONS? NO . DO YOU HAVE HISTORY OF MRSA? NO . MUSCULOSKELETAL: ANY NEW PATTERNS OF PAIN OR NUMBNESS? NO- STATES HE HAS NO NEW PAIN. STATES HE CONTINUES TO HAVE PAIN ON RIGHT SIDE OF NECK OUT TO HIS SHOULDER . GASTROENTEROLOGY: ANY NEW CHANGE IN BOWEL CONTROL? NO . GENITOURINARY: ANY NEW CHANGE IN BLADDER CONTROL? NO . IS THERE A CHANCE YOU COULD BE ? NO . HEMATOLOGY/LYMPH: DO YOU TAKE ANY BLOOD THINNERS? (FOR EXAMPLE- COUMADIN, PLAVIX, AGGRENOX, PLATEL, PRADAXA, OR XARELTO) NO . WHEN WAS YOUR LAST DOSE? DATE: TIME: . NEUROLOGY: HAVE YOU FALLEN IN THE PAST 12 MONTHS? NO . ANY NEW EXTREMITY NUMBNESS OR WEAKNESS? NO . CARDIOLOGY: DO YOU HAVE A PACEMAKER OR DEFIBRILLATOR? NO . RESPIRATORY: HAVE YOU BEEN SICK IN THE PAST WEEK? NO . FEVER NO . FLU LIKE SYMPTOMS? NO . COUGH NO . INTEGUMENTARY: DO YOU HAVE ANY RASHES OR OPEN SORES? NO . ALLERGIC/IMMUNO: ARE YOU ALLERGIC TO IV DYE? NO . ANY NEW ALLERGIES? NO . PSYCHIATRIC: DO YOU HAVE THOUGHTS OF HURTING YOURSELF OR SOMEONE ELSE? NO . ARE YOU ABUSED, NEGLECTED, OR IN AN UNSAFE ENVIRONMENT? NO . ENDOCRINOLOGY: ARE YOU DIABETIC? NO . OTHER: DO YOU NEED ANY PRESCRIPTIONS? NO . IF YES, PLEASE LIST: ____ . ANY NEW PROBLEMS WITH YOUR MEDICATIONS? NO . WHEN DID YOU LAST EAT? ____ . WHEN DID YOU LAST DRINK? ____ . WHAT DID YOU LAST DRINK? ____ . NAME OF PERSON DRIVING YOU HOME? ____ . DO YOU HAVE ANY OTHER QUESTIONS OR CONCERNS NO . VITAL SIGNS WT 135.8 LBS, HT 67 IN, BMI 21.27 INDEX, BP 119/54 MM HG, HR 104 /MIN, RR 18 /MIN, TEMP 97.5 F, OXYGEN SAT % 100%, NA INITIALS AW 0951. EXAMINATION GENERAL EXAMINATION: GENERAL AWAKE,ALERT ,PLEAASANT . PSYCH AFFECT NORMAL . LUNGS: LUNG SOL ARE CLEAR TO AUSCULTATION BILATERALLY. GOOD MOVEMENT OF AIR . HEART: S1, S2 IN A REGULAR RATE AND RHYTHM. NO SIGNIFICANT MURMURS, RUBS OR GALLOPS NOTED . CERVICAL: TRIGGER POINTS:, ELICITED WITH PALPATION OVER CERVICAL SPINOUS PROCESSES AND ACROSS THE TRAPEZIUS MUSCLES BILATERALLY. RESTRICTION OF ROM IS NOTED.. DIAGNOSTIC TESTS REVIEWEDMRI CERVICAL SPINE 2019 . ASSESSMENTS MYALGIA, OTHER SITE - M79.18 (PRIMARY) TREATMENT MYALGIA, OTHER SITE NOTES: TRIGGER POINT INJECTION, BILATERAL NECK. OTHERS NOTES: PRE VISIT PHONE CALL COMPLETED WITH PATIENT. 04/07/2020 1437 [facility]. PROCEDURE CODES FA211 ESTABILISHED PATIENT [facility] CHARGE DISPOSITION & COMMUNICATION FOLLOW UP POST (REASON: TRIGGER POINT INJECTION, BILATERAL NECK) ELECTRONICALLY SIGNED BY ALEXIS TAMEZ ON 04/11/2020 AT 03:33 PM EDT DISCLAIMER : THIS IS A VISIT SUMMARY EXTRACTED FROM THE [employer] CHART. IT IS NOT A COPY OF THE [employer] PROGRESS NOTE. MARINA
== END ==
LOC: M PAIN 10:15
PROVIDERS: ATTEND Nurse Practitioner Family
DX: M79.18 Myalgia, other site (principal); G47.9 Sleep disorder, unspecified; Z86.59 Personal history of other mental and behavioral disorders; F17.210 Nicotine dependence, cigarettes, uncomplicated; Z88.8 Allergy status to other drugs, medicaments and biological substances; Z79.899 Other long term (current) drug therapy

== ENCOUNTER → 2020-04-23 | Outpatient (CLI) | payer OTHER | LOC: M LABSMTC 11:25 | PROVIDERS: ATTEND Anesthesiology | DX: Z11.59 Encounter for screening for other viral diseases (principal) ==

== ENCOUNTER → 2020-04-26 | Outpatient (CLI) | payer OTHER, MEDICAID ==
[~2020-04-26] MED LIST changes: +BUPIVACAINE HCL 0.25% 10ML VIAL As Ordered ONE; +BUPIVACAINE HCL 0.25% 30ML VIAL As Ordered ONE; +NORCO, ANEXSIA 5/325MG TABLET (HYDROcodone/ACETAMINOPHEN) As Ordered ONE; +dexameTHASONE 10MG/1ML VIAL PRES.FREE (J1100 PER 1MG) As Ordered ONE; +diazePAM 5 MG TAB As Ordered ONE
--- NOTE | 2020-04-29 01:34 | ECWPNPC ---
PATIENT NAME: ROSEMARIE BLAND : 1990 GENDER: MALE VISIT DATE: 04/26/2020 DISCHARGE DATE: 04/26/20 1335 VISIT LOCKED DATE TIME: PHYSICIAN: MARV CAMACHO MD RESOURCE: MARV CAMACHO MD REASON FOR APPOINTMENT 1. TPI BILATERAL NECK HISTORY OF PRESENT ILLNESS DEPRESSION SCREENING: PHQ-2 (2015 EDITION) LITTLE INTEREST OR PLEASURE IN DOING THINGS?SEVERAL DAYS FEELING DOWN, DEPRESSED, OR HOPELESS?NOT AT ALL TOTAL SCORE1 GENERAL: -. FALL RISK SCREENING: SCREENING :NO FALLS REPORTED IN THE LAST YEAR PAIN SCREENING: PATIENT HAS A COMPLAINT OF ACUTE OR CHRONIC PAIN :YES LOCATION OF PAIN:NECK INTENSITY OF PAIN (SCALE OF 1 TO 10):3 WHAT DOES YOUR PAIN FEEL LIKE:ACHING, CONTINOUS, THROBBING DURATION:ONLY WITH SPECIFIC ACTIVITIES PAIN IS INREASED BY:ACTIVITIES, OTHERS LIFTING PAIN IS DECREASED BY: LAYING DOWN TREATMENT/MEDICATIONS USED TO MANAGE PAIN:OTC PAIN RELIEVERS, NSAIDS LEVEL OF RELIEF FROM PAIN TREATMENTS IN THE PAST:100% PAIN HAS INTERFERED WITH THE FOLLOWING:MOOD, EMPLOYMENT, HOUSEWORK PLAN/GOALS/TREATMENT/INTERVENTION/FOLLOW UP:SEE PLAN NURSING NOTE: -. PAIN CENTER INTAKE QUESTIONS: DO YOU HAVE A HISTORY OF MRSA? :NO DO YOU TAKE A BLOOD THINNERS? :NO DO YOU HAVE ANY BLEEDING DISORDERS? :NO ANY NEW NUMBNESS OR WEAKNESS IN YOUR LEGS OR ARMS? :YES RECENTLY DIAGNOSED WITH CARPAL TUNNEL IN RIGHT HAND, INCREASED PAIN IN RIGHT HAND ANY PACEMAKER,DEFIBRILLATOR, OR DORSAL COLUMN STIMULATOR? :NO DO YOU HAVE ANY RASHES OR OPEN SORES? :NO ARE YOU ALLERGIC TO IV DYE? :NO ARE YOU DIABETIC? :NO ANY NEW PROBLEMS WITH YOUR MEDICATIONS? :NO HAVE YOU RECEIVED A VACCINE IN THE PAST 30 DAYS? :NO DO YOU PLAN TO RECEIVE A VACCINE IN THE NEXT 21 DAYS? :NO ANY HISTORY OF SEIZURES? :NO ANY HISTORY OF CARDIAC ISSUES OR EVENTS? :NO DO YOU HAVE SLEEP APNEA? :NO ANY RECENT HEAD INJURY? :NO DO YOU HAVE ANY NEW INFECTIONS? :NO WHEN DID YOU LAST EAT? : -04/25 8PM WHEN DID YOU LAST DRINK? : -04/25 11P WHAT DID YOU LAST DRINK? : -CHOCOLATE MILK NAME OF PERSON DRIVING YOU HOME? : -MOM DO YOU HAVE ANY OTHER QUESTIONS OR CONCERNS? : - CURRENT MEDICATIONS TAKING MOBIC 7.5 MG TABLET 1 TABLET ORALLY ONCE A DAY, NOTES: 04/26 7AM TAKING DEPAKOTE 500 MG TABLET DELAYED RELEASE 1 TABLET ORALLY TWICE A DAY, NOTES: 04/26 7AM TAKING CYMBALTA 30 MG CAPSULE DELAYED RELEASE PARTICLES 1 CAPSULE ORALLY ONCE A DAY, NOTES: 04/26 7AM NOT-TAKING NAPROXEN SODIUM 550 MG TABLET 1 TABLET ORALLY TWICE A DAY NOT-TAKING BACTRIM DS 800-160 TABLET 1 TABLET ORALLY TWICE A DAY NOT-TAKING NAPROXEN 500 MG TABLET 1 TABLET NEEDED ORALLY EVERY 12 HRS NOT-TAKING IBUPROFEN 200 MG TABLET 1 TABLET WITH FOOD OR MILK NEEDED ORALLY EVERY 6 HRS MEDICATION LIST REVIEWED AND RECONCILED WITH THE PATIENT PAST MEDICAL HISTORY MEMORY IMPAIRMENT INJURY OF BLOOD VESSELS OF HEAD, NEC, SUBS TRANSIENT ALTERATION OF AWARENESS SYNCOPE AND COLLAPSE CERVICALGIA BILAT CARPAL TUNNEL SYNDROME SLEEP DISORDER ANXIETY ALLERGIES CHLORINE: EYEDAMAGE - SIDE EFFECTS SURGICAL HISTORY RIGHT WRIST CYST DOUBLE HERNIA SURGERY INFANT RIGHT WRIST CYST REMOVED 2003 & 2006 FAMILY HISTORY FATHER: ALIVE MOTHER: ALIVE, DIAGNOSED WITH UNSPECIFIED CEREBRAL ARTERY OCCLUSION WITH CEREBRAL INFARCTION SIBLINGS: OVARIAN CANCER PATERNAL GRAND FATHER: PROSTATE, OTHER MALIGNANT NEOPLASM OF UNSPECIFIED SITE 2 SISTER(S) . SOCIAL HISTORY GENERAL: TOBACCO USE ARE YOU A:CURRENT SMOKER ARE YOU INTERESTED IN QUITTING?THINKING ABOUT QUITTING HOW MANY CIGARETTES A DAY DO YOU SMOKE?6-10 PATIENT COUNSELED ON THE DANGERS OF TOBACCO USE AND URGED TO QUIT:04/26/2020 LATEX QUESTIONNAIRE LATEX ALLERGY : HAVE YOU EVER DEVELOPED ANY TYPE OF REACTION AFTER HANDLING LATEX PRODUCTS SUCH RUBBER GLOVES, CONDOMS, DIAPHRAGMS, BALLOONS, SOCKS, OR UNDERWEAR?NO LATEX ALLERGY : HAVE YOU EVER DEVELOPED ANY TYPE OF REACTION DURING OR AFTER DENTAL APPOINTMENT, VAGINAL/RECTAL EXAMINATION, SURGICAL PROCEDURE, OR ANY OTHER EXPOSURE?NO LATEX RISK : HAVE YOU EVER HAD ANY DIFFICULTY BREATHING OR HIVES AFTER EATING OR HANDLING ANY FRUITS, OR VEGETABLES; SUCH KIWI, BANANAS, STONE FRUITS, OR CHESTNUTSNO LATEX RISK : DO YOU HAVE A PREVIOUS PERSONAL HISTORY OF MORE THAN NINE SURGERIES, SPINA BIFIDA, OR REPEATED CATHERIZATIONS? NO LATEX RISK : ARE YOU FREQUENTLY EXPOSED TO LATEX PRODUCTS IN YOUR OCCUPATION?NO DATE ASKED : 04/26/2020 ALCOHOL SCREENING DID YOU HAVE A DRINK CONTAINING ALCOHOL IN THE PAST YEAR?YES HOW OFTEN DID YOU HAVE SIX OR MORE DRINKS ON ONE OCCASION IN THE PAST YEAR?NEVER (0 POINTS) HOW MANY DRINKS DID YOU HAVE ON A TYPICAL DAY WHEN YOU WERE DRINKING IN THE PAST YEAR?1 OR 2 (0 POINTS) HOW OFTEN DID YOU HAVE A DRINK CONTAINING ALCOHOL IN THE PAST YEAR?MONTHLY OR LESS (1 POINT) POINTS1 INTERPRETATIONNEGATIVE RECREATIONAL DRUG USE DRUG USE?YES HOW OFTEN AND HOW MUCH? MARIJIANA- DAILY CAFFEINE CAFFEINE USE?YES HOW OFTEN AND HOW MUCH? 36OZ COFFEE A DAY EPISCOPAL [id number] NONE LANGUAGE LANGUAGES SPOKEN:ST LUCIAN LEARNING BARRIERS / SPECIAL NEEDS BARRIERS TO LEARNING?YES COMMENTS LIMITED READING ABILITY HEARING IMPAIRED?YES VISION IMPAIRED?NO COGNITIVELY IMPAIRED?NO :HEARING AIDES READINESS TO LEARN?YES LEARNING PREFERENCES?YES :BOOKLETS, HANDOUTS, DEMONSTRATION/VERBAL INSTRUCTION LEARNING CAPABILITIES PRESENT?YES EMOTIONAL BARRIERS?NO SPECIAL DEVICES?NO DOMESTIC VIOLENCE DO YOU FEEL SAFE IN YOUR ENVIRONMENT?YES NEW PATIENT PAIN DIARY TODAY'S VISITNOTES PATIENT DESCRIBES PAIN :OTHER FROM 0-10, WHAT LEVEL IS YOUR PAIN TODAY?3 HAVE YOU BEEN SICK IN THE LAST WEEK (COLD, COUGH, FEVER, FLU, ETC)YES HAD A STOMACH BUG YESTERDAY DO YOU HAVE ANY RASHES OR OPEN SORES?NO ANY CHANGE IN BOWEL OR BLADDER CONTROL?NO ARE YOU ALLERGIC TO SHELLFISH OR IV DYE?NO ARE YOU DIABETIC?NO DO YOU HAVE A PACEMAKER OR DEFIBRILLATOR?NO ANY NEW PROBLEMS WITH MEDICINES OR NEW ALLERGIESNO WILL BE DISCUSSING CYMBALTA WITH JOSE WAITE DUE TO SHAKINESS IN HANDS ANY NEW PATTERNS OF PAIN OR NUMBNESS?NO ANY CHANGE IN YOUR MEDICAL CONDITION?NO HAVE YOU FALLEN IN THE LAST 6 MONTHS?YES DO YOU USE ANY TYPE OF TOBACCO (SMOKE, SMOKELESS, CHEW, ETC.)YES ARE YOU ABUSED, NEGLECTED, OR IN AN UNSAFE ENVIRONMENT?NO DO YOU HAVE THOUGHTS OF HURTING YOURSELF OR SOMEONE ELSE?NO DO YOU NEED ANY PRESCRIPTIONS?NO DO YOU HAVE ANY OTHER QUESTIONS OR CONCERNS?NO PAIN CLINIC PFS, CLERGY, PUBLIC HEALTH REFERRALS HAS THE PATIENT BEEN EDUCATED REGARDING HIS/HER PLAN OF CARE?YES HAS THE PATIENT BEEN EDUCATED REGARDING PAIN, THE RISK FOR PAIN, THE IMPORTANCE OF EFFECTIVE PAIN MANAGEMENT, AND THE PAIN ASSESSMENT PROCESS?YES ADVANCE DIRECTIVE ADVANCE DIRECTIVE DISCUSSED WITH PATIENT:YES PT STATES THAT HE DOES NOT HAVE HCP AT THIS TIME, DECLINES INFORMATION OR ASSISTANCE WITH PAPERWORK.DS HOSPITALIZATION/MAJOR DIAGNOSTIC PROCEDURE NO HOSPITALIZATION HISTORY. VITAL SIGNS WT 133.4 LBS, HT 67 IN, BMI 20.89 INDEX, BP 101/55 MM HG, HR 68 /MIN, RR 18 /MIN, TEMP 98.1 F, OXYGEN SAT % 96%, SAFE IN ENV? (Y/N) Y, NA INITIALS SC 12:44, REVIEWED BY: MARIANELA. EXAMINATION GENERAL EXAMINATION: THE PATIENT IS ALERT, ORIENTED TIMES THREE AND COOPERATIVE. HEART SHOWS REGULAR RHYTHM, NO MURMURS AND NO GALLOPS. LUNGS ARE CLEAR TO AUSCULTATION. ASSESSMENTS MYALGIA, OTHER SITE - M79.18 (PRIMARY) PROCEDURES PAIN NURSING RECORD PRE-PROCEDURE IV ATTEMPTS PT GIVEN VALIUM 10MG, HYDROCODONE-ACETAMINOPHEN 5/325MG, PO, PT TAKING PO PILLS AND FLUIDS WITHOUT DIFFICULTY. DS PROCEDURE IN ROOM 1300, PHYSICIAN IN ROOM 1315, START 1319, FINISH 1325, PHYSICIAN OUT OF ROOM 1326, OUT OF ROOM 1330, STEROID DEXAMETHASONE, O2 RA, ECG N/A, PATIENT SHIELDED NO, SAFETY STRAP NO, PREP ALCOHOL MD CAMACHO, IV INFUSED N/A, DRESSING BY: NO DRESSING : POST PAIN 0, SITE NECK, IV N/A, DRESSING DRY AND INTACT YES NO DRESSING, GAIT STEADY BP: VITAL SIGNS 1330 114/70, 66, 18, 97%, 0/10 PAIN LOC: 1. ALERT, ORIENTED RESP: 1.REGULAR, NO DYSPNEA COLOR: 1.PINK SKIN: 1. WARM,DRY POSITION: UPRIGHT VITALS: PT AMBULATED FROM PROCEDURE ROOM, GAIT STEADY, PT TOLERATED PROCEDURE WELL. DS DISCHARGE: DRESSING SITE DRY AND INTACT NECK, IV N/A, GAIT STEADY, TEACHING COMPLETED, PATIENT ACKNOWLEDGES UNDERSTANDING YES, PATIENT DISCHARGED AT 1334 PN TRIGGER POINT INJECTION WITH STEROIDS PRE PROCEDURE DIAGNOSIS 1. MYALGIA 2. PAIN AT BILATERAL NECK AREA POST PROCEDURE DIAGNOSIS 1. MYALGIA 2. PAIN AT BILATERAL NECK AREA PROCEDURE TRIGGER POINT INJECTION AT BILATERAL NECK AREA SURGEON DR. MARV CAMACHO SENIOR NET ARCHITECT NONE ANESTHESIA LOCAL PRE PROCEDURE NOTE THE PATIENT HAS A HISTORY OF CHRONIC PAIN AT THE RIGHT AND LEFT NECK AREA. I EVALUATED THE PATIENT AND REVIEWED THE CHART. THERE IS EVIDENCE OF BANDS OF TISSUE WITH RESTRICTION OF MOVEMENT AND PRESENCE OF TRIGGER POINT AT THE RIGHT AND LEFT NECK AREA. I DISCUSSED THAT THE USE OF STEROIDS MAY CONTRIBUTE TO IMMUNOSUPPRESSION OF THE PATIENT'S BODY AGAINST INFECTIONS SUCH THE [place] VIRUS, COVID-19. THE PATIENT IS AWARE OF THE POTENTIAL COMPLICATIONS ASSOCIATED WITH AN INFECTION OF THIS VIRUS INCLUDING . I WENT OVER THE RISKS, ALTERNATIVES, AND BENEFITS ASSOCIATED WITH THIS PROCEDURE. THE PATIENT WOULD LIKE TO PROCEED AND GIVE CONSENT TO PERFORMED THE PROCEDURE. THE PATIENT DENIES UNEXPLAINABLE WEIGHT LOSS, FEVER, CHILLS, OR NEW CHANGES IN URINARY OR BOWEL CONTROL. THE PATIENT IS COVID-19 NEGATIVE DESCRIPTION OF PROCEDURE THE PATIENT WAS BROUGHT TO THE PROCEDURE ROOM AND PLACED IN THE SITTING POSITION. THE AREA WAS CLEANED WITH ALCOHOL. THE PROCEDURE WAS DONE USING ASEPTIC STERILE TECHNIQUE. I CHECKED LATERALITY AND THE LEVEL WHERE THE PROCEDURE WAS GOING TO BE PERFORMED WITH THE PATIENT AND THE SUPPORTING STAFF AT THE MOMENT OF THE TIME OUT IN THE PROCEDURE ROOM. USING A 25-GAUGE NEEDLE, TRIGGER POINTS WERE INJECTED AT THE RIGHT AND LEFT NECK AREA WITH A TOTAL OF 40 ML OF BUPIVACAINE 0.25% AND DEXAMETHASONE 10 MG. THERE WAS NO EVIDENCE OF BLOOD, PARESTHESIA OR CEREBROSPINAL FLUID DURING THE PROCEDURE. THE PATIENT WAS SENT TO THE RECOVERY ROOM. THE PATIENT WAS MOVING THE EXTREMITIES AND DOING WELL. THERE WAS NO COMPLICATION DURING THE PROCEDURE POST PROCEDURE NOTE THE PROCEDURE DONE WAS DISCUSSED WITH THE PATIENT. THE PATIENT WILL BE SEEN IN A FOLLOW UP IN THE NEXT FEW WEEKS. I AM LOOKING FOR LONG LASTING PAIN RELIEF FOR THE PATIENT WITH THIS INTERVENTION. INSTRUCTIONS WERE GIVEN, QUESTIONS WERE ANSWERED, AND THE PATIENT EXPRESSED UNDERSTANDING AND AGREES WITH THE PLAN. THE PATIENT IS AWARE TO STAY HOME FOR THE NEXT WEEK, IF POSSIBLE, DUE TO COVID-19. I, JEFRY GASPAR, DOCUMENTED THE ABOVE INFORMATION ACTING A SCRIBE FOR DR. CAMACHO. I HAVE REVIEWED THE ABOVE DOCUMENT, WRITTEN BY JEFRY GASPAR, CHEMICAL ENGINEERING PROFESSOR, AND I VERIFY THAT IT IS ACCURATE PROCEDURE CODES 34621 INJ TRIGGER POINT / MUSC DISPOSITION & COMMUNICATION FOLLOW UP F/UP WITH MOTORCYCLE MECHANIC APPRENTICE (REASON: POST TPI QUINTIN NECK) ELECTRONICALLY SIGNED BY MARV CAMACHO MD, MD ON 04/28/2020 AT 11:08 AM EDT DISCLAIMER : THIS IS A VISIT SUMMARY EXTRACTED FROM THE [facility] CHART. IT IS NOT A COPY OF THE [facility] PROGRESS NOTE. MARINA
== END ==
LOC: M PAIN 12:45
PROVIDERS: ATTEND Anesthesiology
DX: M79.18 Myalgia, other site (principal)
CPT/HCPCS: 20552; J1100

== ENCOUNTER → 2020-05-12 | Outpatient (CLI) | payer OTHER, MEDICAID ==
[~2020-05-12] MED LIST changes: -BUPIVACAINE HCL 0.25% 10ML VIAL As Ordered ONE; -BUPIVACAINE HCL 0.25% 30ML VIAL As Ordered ONE; -NORCO, ANEXSIA 5/325MG TABLET (HYDROcodone/ACETAMINOPHEN) As Ordered ONE; -dexameTHASONE 10MG/1ML VIAL PRES.FREE (J1100 PER 1MG) As Ordered ONE; -diazePAM 5 MG TAB As Ordered ONE
--- NOTE | 2020-05-16 02:08 | ECWPNPC ---
PATIENT NAME: ROSEMARIE BLAND : 1990 GENDER: MALE VISIT DATE: 05/12/2020 DISCHARGE DATE: 05/12/20 0954 VISIT LOCKED DATE TIME: PHYSICIAN: JUSTICE GUEVARA RESOURCE: JUSTICE GUEVARA REASON FOR APPOINTMENT 1. POST TPI [phone] PAT DONE HISTORY OF PRESENT ILLNESS GENERAL: PATIENT IS AGREEABLE TO TELEPHONE VISIT TODAY. THIS IS A POST PROCEDURE FOLLOW-UP. HAD TRIGGER POINT INJECTIONS ON 04/10/2020. REPORTS THAT INITIAL AGGRAVATION IN HIS PAIN POSTPROCEDURE AND SOME BRUISING BUT OVERALL, HE FEELS HE IS BENEFITING FROM TRIGGER POINT INJECTIONS TODAY. ATTENDED PHYSICAL THERAPY. IS DOING HOME EXERCISE AND STRETCHING. HE FEELS HIS PAIN IN GENERAL IS IS BETTER SINCE DOING TRIGGER POINT INJECTIONS AND PHYSICAL THERAPY. DISCUSSED TREATMENT PLAN. -. FALL RISK SCREENING: SCREENING :NO FALLS REPORTED IN THE LAST YEAR PAIN SCREENING: PATIENT HAS A COMPLAINT OF ACUTE OR CHRONIC PAIN :YES 05/11/20 INTENSITY OF PAIN (SCALE OF 1 TO 10):4 WHAT DOES YOUR PAIN FEEL LIKE:ACHING, STABBING PAIN IS INCREASED BY: MOVEMENT OF NECK PAIN IS DECREASED BY: REST NURSING NOTE: -. PAIN CENTER INTAKE QUESTIONS: DO YOU HAVE A HISTORY OF MRSA? :NO DO YOU TAKE A BLOOD THINNERS? :NO DO YOU HAVE ANY BLEEDING DISORDERS? :NO ANY NEW NUMBNESS OR WEAKNESS IN YOUR LEGS OR ARMS? :YES RIGHT ARM NUMBNESS ANY PACEMAKER,DEFIBRILLATOR, OR DORSAL COLUMN STIMULATOR? :NO DO YOU HAVE ANY RASHES OR OPEN SORES? :NO ARE YOU ALLERGIC TO IV DYE? :NO ARE YOU DIABETIC? :NO ANY NEW PROBLEMS WITH YOUR MEDICATIONS? :NO HAVE YOU RECEIVED A VACCINE IN THE PAST 30 DAYS? :NO DO YOU PLAN TO RECEIVE A VACCINE IN THE NEXT 21 DAYS? :NO DO YOU NEED ANY PRESCRIPTION? :NO DO YOU TAKE ANY IMMUNOSUPPRESSIVE MEDICATIONS? :NO IS THERE A CHANCE YOU COULD BE ? :NO ARE YOU BREAST FEEDING? :NO CURRENT MEDICATIONS TAKING MOBIC 7.5 MG TABLET 1 TABLET ORALLY ONCE A DAY TAKING DEPAKOTE 500 MG TABLET DELAYED RELEASE 1 TABLET ORALLY TWICE A DAY TAKING CYMBALTA 30 MG CAPSULE DELAYED RELEASE PARTICLES 1 CAPSULE ORALLY ONCE A DAY NOT-TAKING NAPROXEN SODIUM 550 MG TABLET 1 TABLET ORALLY TWICE A DAY NOT-TAKING BACTRIM DS 800-160 TABLET 1 TABLET ORALLY TWICE A DAY NOT-TAKING NAPROXEN 500 MG TABLET 1 TABLET NEEDED ORALLY EVERY 12 HRS NOT-TAKING IBUPROFEN 200 MG TABLET 1 TABLET WITH FOOD OR MILK NEEDED ORALLY EVERY 6 HRS MEDICATION LIST REVIEWED AND RECONCILED WITH THE PATIENT PAST MEDICAL HISTORY MEMORY IMPAIRMENT INJURY OF BLOOD VESSELS OF HEAD, NEC, SUBS TRANSIENT ALTERATION OF AWARENESS SYNCOPE AND COLLAPSE CERVICALGIA BILAT CARPAL TUNNEL SYNDROME SLEEP DISORDER ANXIETY ALLERGIES CHLORINE: EYEDAMAGE - SIDE EFFECTS SURGICAL HISTORY RIGHT WRIST CYST DOUBLE HERNIA SURGERY INFANT RIGHT WRIST CYST REMOVED 2003 & 2006 FAMILY HISTORY FATHER: ALIVE MOTHER: ALIVE, DIAGNOSED WITH UNSPECIFIED CEREBRAL ARTERY OCCLUSION WITH CEREBRAL INFARCTION SIBLINGS: OVARIAN CANCER PATERNAL GRAND FATHER: PROSTATE, OTHER MALIGNANT NEOPLASM OF UNSPECIFIED SITE 2 SISTER(S) . SOCIAL HISTORY GENERAL: TOBACCO USE ARE YOU A:CURRENT SMOKER ARE YOU INTERESTED IN QUITTING?THINKING ABOUT QUITTING COUNSELED THE PATIENT ON SMOKING CESSATION, EDUCATION [id number]/2020 HOW MANY CIGARETTES A DAY DO YOU SMOKE?6-10 PATIENT COUNSELED ON THE DANGERS OF TOBACCO USE AND URGED TO QUIT:04/26/2020 LATEX QUESTIONNAIRE LATEX ALLERGY : HAVE YOU EVER DEVELOPED ANY TYPE OF REACTION AFTER HANDLING LATEX PRODUCTS SUCH RUBBER GLOVES, CONDOMS, DIAPHRAGMS, BALLOONS, SOCKS, OR UNDERWEAR?NO LATEX ALLERGY : HAVE YOU EVER DEVELOPED ANY TYPE OF REACTION DURING OR AFTER DENTAL APPOINTMENT, VAGINAL/RECTAL EXAMINATION, SURGICAL PROCEDURE, OR ANY OTHER EXPOSURE?NO DATE ASKED : 04/26/2020 LATEX RISK : HAVE YOU EVER HAD ANY DIFFICULTY BREATHING OR HIVES AFTER EATING OR HANDLING ANY FRUITS, OR VEGETABLES; SUCH KIWI, BANANAS, STONE FRUITS, OR CHESTNUTSNO LATEX RISK : DO YOU HAVE A PREVIOUS PERSONAL HISTORY OF MORE THAN NINE SURGERIES, SPINA BIFIDA, OR REPEATED CATHERIZATIONS? NO LATEX RISK : ARE YOU FREQUENTLY EXPOSED TO LATEX PRODUCTS IN YOUR OCCUPATION?NO ALCOHOL SCREENING DID YOU HAVE A DRINK CONTAINING ALCOHOL IN THE PAST YEAR?YES HOW OFTEN DID YOU HAVE SIX OR MORE DRINKS ON ONE OCCASION IN THE PAST YEAR?NEVER (0 POINTS) HOW MANY DRINKS DID YOU HAVE ON A TYPICAL DAY WHEN YOU WERE DRINKING IN THE PAST YEAR?1 OR 2 (0 POINTS) HOW OFTEN DID YOU HAVE A DRINK CONTAINING ALCOHOL IN THE PAST YEAR?MONTHLY OR LESS (1 POINT) POINTS1 INTERPRETATIONNEGATIVE RECREATIONAL DRUG USE DRUG USE?YES HOW OFTEN AND HOW MUCH? MARIJIANA- DAILY CAFFEINE CAFFEINE USE?YES HOW OFTEN AND HOW MUCH? 36OZ COFFEE A DAY CHEONDOISM [id number] NONE LANGUAGE LANGUAGES SPOKEN:HUNGARIAN LEARNING BARRIERS / SPECIAL NEEDS BARRIERS TO LEARNING?YES COMMENTS LIMITED READING ABILITY HEARING IMPAIRED?YES VISION IMPAIRED?NO COGNITIVELY IMPAIRED?NO :HEARING AIDES READINESS TO LEARN?YES LEARNING PREFERENCES?YES :BOOKLETS, HANDOUTS, DEMONSTRATION/VERBAL INSTRUCTION LEARNING CAPABILITIES PRESENT?YES EMOTIONAL BARRIERS?NO SPECIAL DEVICES?NO DOMESTIC VIOLENCE DO YOU FEEL SAFE IN YOUR ENVIRONMENT?YES NEW PATIENT PAIN DIARY TODAY'S VISITNOTES PATIENT DESCRIBES PAIN :OTHER FROM 0-10, WHAT LEVEL IS YOUR PAIN TODAY?3 HAVE YOU BEEN SICK IN THE LAST WEEK (COLD, COUGH, FEVER, FLU, ETC)YES HAD A STOMACH BUG YESTERDAY DO YOU HAVE ANY RASHES OR OPEN SORES?NO ANY CHANGE IN BOWEL OR BLADDER CONTROL?NO ARE YOU ALLERGIC TO SHELLFISH OR IV DYE?NO ARE YOU DIABETIC?NO DO YOU HAVE A PACEMAKER OR DEFIBRILLATOR?NO ANY NEW PROBLEMS WITH MEDICINES OR NEW ALLERGIESNO WILL BE DISCUSSING CYMBALTA WITH JOSE WAITE DUE TO SHAKINESS IN HANDS ANY NEW PATTERNS OF PAIN OR NUMBNESS?NO ANY CHANGE IN YOUR MEDICAL CONDITION?NO HAVE YOU FALLEN IN THE LAST 6 MONTHS?YES DO YOU USE ANY TYPE OF TOBACCO (SMOKE, SMOKELESS, CHEW, ETC.)YES ARE YOU ABUSED, NEGLECTED, OR IN AN UNSAFE ENVIRONMENT?NO DO YOU HAVE THOUGHTS OF HURTING YOURSELF OR SOMEONE ELSE?NO DO YOU NEED ANY PRESCRIPTIONS?NO DO YOU HAVE ANY OTHER QUESTIONS OR CONCERNS?NO PAIN CLINIC PFS, CLERGY, PUBLIC HEALTH REFERRALS HAS THE PATIENT BEEN EDUCATED REGARDING HIS/HER PLAN OF CARE?YES HAS THE PATIENT BEEN EDUCATED REGARDING PAIN, THE RISK FOR PAIN, THE IMPORTANCE OF EFFECTIVE PAIN MANAGEMENT, AND THE PAIN ASSESSMENT PROCESS?YES ADVANCE DIRECTIVE ADVANCE DIRECTIVE DISCUSSED WITH PATIENT:YES PT STATES THAT HE DOES NOT HAVE HCP AT THIS TIME, DECLINES INFORMATION OR ASSISTANCE WITH PAPERWORK. HOSPITALIZATION/MAJOR DIAGNOSTIC PROCEDURE DENIES PAST HOSPITALIZATION REVIEW OF SYSTEMS CONSTITUTIONAL: ANY RECENT FEVER OR ILLNESS NO . CHILLS NO . GASTROENTEROLOGY: BOWEL INCONTINENCE NO . ANY NEW CHANGE IN BOWEL CONTROL? NO . ABDOMINAL PAIN NO . CONSTIPATION NO . GENITOURINARY: ANY NEW CHANGE IN BLADDER CONTROL? NO . IS THERE A CHANCE YOU COULD BE ? NO . URINARY INCONTINENCE NO . CARDIOLOGY: CHEST PRESSURE NO . CHEST PAIN NO . RESPIRATORY: COUGH NO . SHORTNESS OF BREATH NO . ASSESSMENTS MYALGIA, OTHER SITE - M79.18 (PRIMARY) TREATMENT MYALGIA, OTHER SITE NOTES: CONTINUE HOME EXERCISE AND STRETCHING. FOLLOW-UP AT THE PAIN CENTER IN 3 MONTHS. ENCOURAGED TO CALL US SHOULD HIS PAIN INCREASE FOR A SOONER APPOINTMENT. TOTAL TIME SPENT DURING TELEPHONE VISIT WAS APPROXIMATELY 11 MINUTES. OTHERS CLINICAL NOTES: PRE SCREENING CALL DONE 05/11/20 EM. DISPOSITION & COMMUNICATION FOLLOW UP 3 MONTHS IN PAIN CLINIC (REASON: CHRONIC NECK PAIN.) ELECTRONICALLY SIGNED BY ALEXIS TAMEZ ON 05/15/2020 AT 12:00 PM EDT DISCLAIMER : THIS IS A VISIT SUMMARY EXTRACTED FROM THE [facility] CHART. IT IS NOT A COPY OF THE [facility] PROGRESS NOTE. MARINA
== END ==
LOC: M PAIN 10:15
PROVIDERS: ATTEND Nurse Practitioner Family
DX: M79.18 Myalgia, other site (principal)

== ENCOUNTER → 2020-08-21 | Outpatient (CLI) | payer OTHER, MEDICAID | LOC: M PAIN 14:31 | PROVIDERS: ATTEND Nurse Practitioner Family | DX: M79.18 Myalgia, other site (principal) ==

== ENCOUNTER → 2020-09-29 | Outpatient (CLI) | payer OTHER, MEDICAID ==
--- NOTE | 2020-10-10 09:59 | ECWPNPC ---
PATIENT NAME: ROSEMARIE BLADN : 1990 GENDER: MALE VISIT DATE: 09/29/2020 DISCHARGE DATE: 09/29/20 1531 VISIT LOCKED DATE TIME: PHYSICIAN: JUSTICE GUEVARA RESOURCE: JUSTICE GUEVARA REASON FOR APPOINTMENT 1. REVIEW MRI HISTORY OF PRESENT ILLNESS DEPRESSION SCREENING: PHQ-2 (2015 EDITION) LITTLE INTEREST OR PLEASURE IN DOING THINGS?NOT AT ALL FEELING DOWN, DEPRESSED, OR HOPELESS?NOT AT ALL TOTAL SCORE0 GENERAL: HERE FOR FOLLOW-UP OF CHRONIC NECK AND LOW BACK PAIN. STATES NECK PAIN HAS BEEN INCREASING LATELY. WAS BENEFITING FROM TRIGGER POINT INJECTIONS DONE SEVERAL MONTHS AGO UP UNTIL RECENTLY. PAIN IS AGGRAVATED WITH RANGE OF JOINT MOTION OF THE NECK. CONTINUES WITH CHRONIC LOW BACK PAIN.-. FALL RISK SCREENING: SCREENING :NO FALLS REPORTED IN THE LAST YEAR NONE PAIN SCREENING: PATIENT HAS A COMPLAINT OF ACUTE OR CHRONIC PAIN :YES LOCATION OF PAIN:NECK, LOW BACK INTENSITY OF PAIN (SCALE OF 1 TO 10):5 WHAT DOES YOUR PAIN FEEL LIKE:ACHING DURATION:INTERMITTENT PAIN IS INCREASED BY:ACTIVITIES PAIN IS DECREASED BY:USE OF PAIN MEDICATIONS NURSING NOTE: -. PAIN CENTER INTAKE QUESTIONS: DO YOU HAVE A HISTORY OF MRSA? :NO DO YOU TAKE A BLOOD THINNERS? :NO DO YOU HAVE ANY BLEEDING DISORDERS? :NO ANY NEW NUMBNESS OR WEAKNESS IN YOUR LEGS OR ARMS? :NO ANY PACEMAKER,DEFIBRILLATOR, OR DORSAL COLUMN STIMULATOR? :NO DO YOU HAVE ANY RASHES OR OPEN SORES? :NO ARE YOU ALLERGIC TO IV DYE? :NO ARE YOU DIABETIC? :NO ANY NEW PROBLEMS WITH YOUR MEDICATIONS? :NO HAVE YOU RECEIVED A VACCINE IN THE PAST 30 DAYS? :NO DO YOU PLAN TO RECEIVE A VACCINE IN THE NEXT 21 DAYS? :NO DO YOU NEED ANY PRESCRIPTION? :NO DO YOU TAKE ANY IMMUNOSUPPRESSIVE MEDICATIONS? :NO IS THERE A CHANCE YOU COULD BE ? :NO ARE YOU BREAST FEEDING? :NO CURRENT MEDICATIONS TAKING DEPAKOTE 500 MG TABLET DELAYED RELEASE 1 TABLET ORALLY TWICE A DAY TAKING CYMBALTA 30 MG CAPSULE DELAYED RELEASE PARTICLES 1 CAPSULE ORALLY ONCE A DAY TAKING TIZANIDINE HCL 2 MG TABLET 1 TABLET NEEDED ORALLY THREE TIMES A DAY NOT-TAKING MOBIC 7.5 MG TABLET 1 TABLET ORALLY ONCE A DAY NOT-TAKING NAPROXEN SODIUM 550 MG TABLET 1 TABLET ORALLY TWICE A DAY NOT-TAKING BACTRIM DS 800-160 TABLET 1 TABLET ORALLY TWICE A DAY NOT-TAKING NAPROXEN 500 MG TABLET 1 TABLET NEEDED ORALLY EVERY 12 HRS NOT-TAKING IBUPROFEN 200 MG TABLET 1 TABLET WITH FOOD OR MILK NEEDED ORALLY EVERY 6 HRS MEDICATION LIST REVIEWED AND RECONCILED WITH THE PATIENT PAST MEDICAL HISTORY MEMORY IMPAIRMENT INJURY OF BLOOD VESSELS OF HEAD, NEC, SUBS TRANSIENT ALTERATION OF AWARENESS SYNCOPE AND COLLAPSE CERVICALGIA BILAT CARPAL TUNNEL SYNDROME SLEEP DISORDER ANXIETY ALLERGIES CHLORINE: EYEDAMAGE - SIDE EFFECTS SURGICAL HISTORY RIGHT WRIST CYST DOUBLE HERNIA SURGERY RIGHT WRIST CYST REMOVED 2003 & 2006 FAMILY HISTORY FATHER: ALIVE MOTHER: ALIVE, DIAGNOSED WITH UNSPECIFIED CEREBRAL ARTERY OCCLUSION WITH CEREBRAL INFARCTION SIBLINGS: OVARIAN CANCER PATERNAL GRAND FATHER: PROSTATE, OTHER MALIGNANT NEOPLASM OF UNSPECIFIED SITE 2 SISTER(S) . SOCIAL HISTORY GENERAL: TOBACCO USE ARE YOU A:CURRENT SMOKER HOW MANY CIGARETTES A DAY DO YOU SMOKE?6-10 ARE YOU INTERESTED IN QUITTING?THINKING ABOUT QUITTING PATIENT COUNSELED ON THE DANGERS OF TOBACCO USE AND URGED TO QUIT:04/26/2020 COUNSELED THE PATIENT ON SMOKING CESSATION, EDUCATION [id number]/11/2020 LATEX QUESTIONNAIRE LATEX ALLERGY : HAVE YOU EVER DEVELOPED ANY TYPE OF REACTION AFTER HANDLING LATEX PRODUCTS SUCH RUBBER GLOVES, CONDOMS, DIAPHRAGMS, BALLOONS, SOCKS, OR UNDERWEAR?NO LATEX ALLERGY : HAVE YOU EVER DEVELOPED ANY TYPE OF REACTION DURING OR AFTER DENTAL APPOINTMENT, VAGINAL/RECTAL EXAMINATION, SURGICAL PROCEDURE, OR ANY OTHER EXPOSURE?NO LATEX RISK : HAVE YOU EVER HAD ANY DIFFICULTY BREATHING OR HIVES AFTER EATING OR HANDLING ANY FRUITS, OR VEGETABLES; SUCH KIWI, BANANAS, STONE FRUITS, OR CHESTNUTSNO LATEX RISK : DO YOU HAVE A PREVIOUS PERSONAL HISTORY OF MORE THAN NINE SURGERIES, SPINA BIFIDA, OR REPEATED CATHERIZATIONS? NO LATEX RISK : ARE YOU FREQUENTLY EXPOSED TO LATEX PRODUCTS IN YOUR OCCUPATION?NO DATE ASKED : 09/29/2020 ALCOHOL SCREENING DID YOU HAVE A DRINK CONTAINING ALCOHOL IN THE PAST YEAR?YES HOW OFTEN DID YOU HAVE SIX OR MORE DRINKS ON ONE OCCASION IN THE PAST YEAR?NEVER (0 POINTS) HOW MANY DRINKS DID YOU HAVE ON A TYPICAL DAY WHEN YOU WERE DRINKING IN THE PAST YEAR?1 OR 2 (0 POINTS) HOW OFTEN DID YOU HAVE A DRINK CONTAINING ALCOHOL IN THE PAST YEAR?MONTHLY OR LESS (1 POINT) POINTS1 INTERPRETATIONNEGATIVE RECREATIONAL DRUG USE DRUG USE?YES HOW OFTEN AND HOW MUCH? MARIJIANA- DAILY CAFFEINE CAFFEINE USE?YES HOW OFTEN AND HOW MUCH? 36OZ COFFEE A DAY ALEVISM [id number] NONE LANGUAGE LANGUAGES SPOKEN:BELGI[place] LEARNING BARRIERS / SPECIAL NEEDS BARRIERS TO LEARNING?YES COMMENTS LIMITED READING ABILITY HEARING IMPAIRED?YES VISION IMPAIRED?NO COGNITIVELY IMPAIRED?NO :HEARING AIDES READINESS TO LEARN?YES LEARNING PREFERENCES?YES :BOOKLETS, HANDOUTS, DEMONSTRATION/VERBAL INSTRUCTION LEARNING CAPABILITIES PRESENT?YES EMOTIONAL BARRIERS?NO SPECIAL DEVICES?NO DOMESTIC VIOLENCE DO YOU FEEL SAFE IN YOUR ENVIRONMENT?YES TODAY'S VISIT NOTES, PATIENT DESCRIBES PAIN : OTHER, FROM 0-10, WHAT LEVEL IS YOUR PAIN TODAY? 3, HAVE YOU BEEN SICK IN THE LAST WEEK (COLD, COUGH, FEVER, FLU, ETC) YES HAD A STOMACH BUG YESTERDAY, DO YOU HAVE ANY RASHES OR OPEN SORES? NO, ANY CHANGE IN BOWEL OR BLADDER CONTROL? NO, ARE YOU ALLERGIC TO SHELLFISH OR IV DYE? NO, ARE YOU DIABETIC? NO, DO YOU HAVE A PACEMAKER OR DEFIBRILLATOR? NO, ANY NEW PROBLEMS WITH MEDICINES OR NEW ALLERGIES NO WILL BE DISCUSSING CYMBALTA WITH JOSE WAITE DUE TO SHAKINESS IN HANDS, ANY NEW PATTERNS OF PAIN OR NUMBNESS? NO, ANY CHANGE IN YOUR MEDICAL CONDITION? NO, HAVE YOU FALLEN IN THE LAST 6 MONTHS? YES, DO YOU USE ANY TYPE OF TOBACCO (SMOKE, SMOKELESS, CHEW, ETC.) YES, ARE YOU ABUSED, NEGLECTED, OR IN AN UNSAFE ENVIRONMENT? NO, DO YOU HAVE THOUGHTS OF HURTING YOURSELF OR SOMEONE ELSE? NO, DO YOU NEED ANY PRESCRIPTIONS? NO, DO YOU HAVE ANY OTHER QUESTIONS OR CONCERNS? NO. PAIN CLINIC PFS, CLERGY, PUBLIC HEALTH REFERRALS HAS THE PATIENT BEEN EDUCATED REGARDING HIS/HER PLAN OF CARE?YES HAS THE PATIENT BEEN EDUCATED REGARDING PAIN, THE RISK FOR PAIN, THE IMPORTANCE OF EFFECTIVE PAIN MANAGEMENT, AND THE PAIN ASSESSMENT PROCESS?YES ADVANCE DIRECTIVE ADVANCE DIRECTIVE DISCUSSED WITH PATIENT:YES PT STATES THAT HE DOES NOT HAVE HCP AT THIS TIME, DECLINES INFORMATION OR ASSISTANCE WITH PAPERWORK. HOSPITALIZATION/MAJOR DIAGNOSTIC PROCEDURE NO HOSPITALIZATION HISTORY. REVIEW OF SYSTEMS CONSTITUTIONAL: ANY RECENT FEVER NO . CHILLS NO . WEIGHT CHANGE OF UNKNOWN REASONS NO . GASTROENTEROLOGY: NEW UNEXPLAINABLE CHANGES IN BOWEL CONTROL NO . CONSTIPATION NO . GENITOURINARY: ANY NEW CHANGE IN BLADDER CONTROL? NO . NEUROLOGY: NEW ONSET DIZZINESS OR NEUROLOGICAL CHANGES NOT MENTIONED NO . NEW NUMBNESS OR PAIN PATTERNS NOT MENTIONED AND PERTINENT TO TODAY'S VISIT NO . CARDIOLOGY: NEW CHEST PRESSURE NO . NEW CHEST PAIN NO . RESPIRATORY: UNEXPLAINABLE COUGH NO . NEW SHORTNESS OF BREATH NO . VITAL SIGNS WT 136.8 LBS, HT 67 IN, BMI 21.42 INDEX, BP 119/60 MM HG, HR 85 /MIN, RR 18 /MIN, TEMP 96.2 F, OXYGEN SAT % 97%, SAFE IN ENV? (Y/N) YES, NA INITIALS MS 14:50, REVIEWED BY: ABRAHAM. EXAMINATION GENERAL EXAMINATION: GENERAL AWAKE,ALERT ,PLEAASANT . PSYCH AFFECT NORMAL . LUNGS: LUNG SOL ARE CLEAR TO AUSCULTATION BILATERALLY. GOOD MOVEMENT OF AIR . HEART: S1, S2 IN A REGULAR RATE AND RHYTHM. NO SIGNIFICANT MURMURS, RUBS OR GALLOPS NOTED . CERVICAL: TRIGGER POINTS:, ELICITED WITH PALPATION OVER CERVICAL SPINOUS PROCESSES AND ACROSS THE TRAPEZIUS MUSCLES BILATERALLY. RESTRICTION OF ROM IS NOTED.. DIAGNOSTIC TESTS REVIEWEDI CERVICAL SPINE 2019 . ASSESSMENTS MYALGIA, OTHER SITE - M79.18 (PRIMARY) TREATMENT MYALGIA, OTHER SITE NOTES: TPI BILAT NECK/UPPER BACK. PROCEDURE CODES FA211 ESTABILISHED [facility]IENT [facility] DISPOSITION & COMMUNICATION FOLLOW UP POST PROCEDURE (REASON: TPI BILAT NECK/UPPER BACK) ELECTRONICALLY SIGNED BY ALEXIS TAMEZ ON 10/09/2020 AT 10:22 AM EST DISCLAIMER : THIS IS A VISIT SUMMARY EXTRACTED FROM THE [employer] CHART. IT IS NOT A COPY OF THE [employer] PROGRESS NOTE. MARINA
== END ==
LOC: M PAIN 15:00
PROVIDERS: ATTEND Nurse Practitioner Family
DX: M79.18 Myalgia, other site (principal); F17.210 Nicotine dependence, cigarettes, uncomplicated; Z86.59 Personal history of other mental and behavioral disorders; Z88.8 Allergy status to other drugs, medicaments and biological substances; Z79.899 Other long term (current) drug therapy

== ENCOUNTER → 2020-10-14 | Outpatient (CLI) | payer OTHER, MEDICAID | LOC: M LABSMTC 08:07 | PROVIDERS: ATTEND Anesthesiology | DX: Z20.828 Contact with and (suspected) exposure to other viral communicable diseases (principal) ==

== ENCOUNTER → 2020-10-19 | Outpatient (CLI) | payer OTHER, MEDICAID ==
[~2020-10-19] MED LIST changes: +BUPIVACAINE HCL 0.25% 10ML VIAL As Ordered ONE; +BUPIVACAINE HCL 0.25% 30ML VIAL As Ordered ONE; +NORCO, ANEXSIA 5/325MG TABLET (HYDROcodone/ACETAMINOPHEN) As Ordered ONE; +TRIAMCINOLONE ACETONIDE SUSP 40 MG/ML VIAL (J3301) As Ordered ONE; +diazePAM 5 MG TAB As Ordered ONE
--- NOTE | 2020-10-21 01:07 | ECWPNPC ---
PATIENT NAME: ROSEMARIE BLAND : 1990 GENDER: MALE VISIT DATE: 10/19/2020 DISCHARGE DATE: 10/19/20 1713 VISIT LOCKED DATE TIME: PHYSICIAN: MARV CAMACHO MD RESOURCE: MARV CAMACHO MD REASON FOR APPOINTMENT 1. TPI BILAT NECK/UPPER BACK HISTORY OF PRESENT ILLNESS GENERAL: -. FALL RISK SCREENING: SCREENING :NO FALLS REPORTED IN THE LAST YEAR PAIN SCREENING: PATIENT HAS A COMPLAINT OF ACUTE OR CHRONIC PAIN :YES LOCATION OF PAIN:NECK, UPPER BACK INTENSITY OF PAIN (SCALE OF 1 TO 10):4 WHAT DOES YOUR PAIN FEEL LIKE:ACHING, CONTINOUS DURATION:CONTINOUS, CONSTANT PAIN IS INCREASED BY:ACTIVITIES, OTHERS WORKING, BENDING OVER PAIN IS DECREASED BY:OTHERS LAYING FLAT NURSING NOTE: -. PAIN CENTER INTAKE QUESTIONS: DO YOU HAVE A HISTORY OF MRSA? :NO DO YOU TAKE A BLOOD THINNERS? :NO DO YOU HAVE ANY BLEEDING DISORDERS? :NO ANY NEW NUMBNESS OR WEAKNESS IN YOUR LEGS OR ARMS? :NO ANY PACEMAKER,DEFIBRILLATOR, OR DORSAL COLUMN STIMULATOR? :NO DO YOU HAVE ANY RASHES OR OPEN SORES? :NO ARE YOU ALLERGIC TO IV DYE? :NO ARE YOU DIABETIC? :NO ANY NEW PROBLEMS WITH YOUR MEDICATIONS? :NO HAVE YOU RECEIVED A VACCINE IN THE PAST 30 DAYS? :NO DO YOU PLAN TO RECEIVE A VACCINE IN THE NEXT 21 DAYS? :NO DO YOU TAKE ANY IMMUNOSUPPRESSIVE MEDICATIONS? :NO ANY HISTORY OF SEIZURES? :NO ANY HISTORY OF CARDIAC ISSUES OR EVENTS? :NO DO YOU HAVE SLEEP APNEA? :NO ANY RECENT HEAD INJURY? :NO DO YOU HAVE ANY NEW INFECTIONS? :NO IS THERE A CHANCE YOU COULD BE ? :NO ARE YOU BREAST FEEDING? :NO WHEN DID YOU LAST EAT? : 10/18/20 1930 WHEN DID YOU LAST DRINK? : 10/19/20 1350 WHAT DID YOU LAST DRINK? : [place] DEW NAME OF PERSON DRIVING YOU HOME? : GUILLERMO BLAND (MOTHER) DO YOU HAVE ANY OTHER QUESTIONS OR CONCERNS? : - CURRENT MEDICATIONS TAKING DEPAKOTE 500 MG TABLET DELAYED RELEASE 1 TABLET ORALLY TWICE A DAY, NOTES: 10/18/20 1830 TAKING CYMBALTA 30 MG CAPSULE DELAYED RELEASE PARTICLES 1 CAPSULE ORALLY ONCE A DAY, NOTES: NONE RECENT TAKING TIZANIDINE HCL 2 MG TABLET 1 TABLET NEEDED ORALLY THREE TIMES A DAY, NOTES: 2 DAYS AGO NOT-TAKING MOBIC 7.5 MG TABLET 1 TABLET ORALLY ONCE A DAY NOT-TAKING NAPROXEN SODIUM 550 MG TABLET 1 TABLET ORALLY TWICE A DAY NOT-TAKING BACTRIM DS 800-160 TABLET 1 TABLET ORALLY TWICE A DAY NOT-TAKING NAPROXEN 500 MG TABLET 1 TABLET NEEDED ORALLY EVERY 12 HRS NOT-TAKING IBUPROFEN 200 MG TABLET 1 TABLET WITH FOOD OR MILK NEEDED ORALLY EVERY 6 HRS MEDICATION LIST REVIEWED AND RECONCILED WITH THE PATIENT PAST MEDICAL HISTORY MEMORY IMPAIRMENT INJURY OF BLOOD VESSELS OF HEAD, NEC, SUBS TRANSIENT ALTERATION OF AWARENESS SYNCOPE AND COLLAPSE CERVICALGIA BILAT CARPAL TUNNEL SYNDROME SLEEP DISORDER ANXIETY ALLERGIES CHLORINE: EYEDAMAGE - SIDE EFFECTS SURGICAL HISTORY RIGHT WRIST CYST DOUBLE HERNIA SURGERY RIGHT WRIST CYST REMOVED 2003 & 2006 FAMILY HISTORY FATHER: ALIVE MOTHER: ALIVE, DIAGNOSED WITH UNSPECIFIED CEREBRAL ARTERY OCCLUSION WITH CEREBRAL INFARCTION SIBLINGS: OVARIAN CANCER PATERNAL GRAND FATHER: PROSTATE, OTHER MALIGNANT NEOPLASM OF UNSPECIFIED SITE 2 SISTER(S) . SOCIAL HISTORY GENERAL: TOBACCO USE ARE YOU A:CURRENT SMOKER ARE YOU INTERESTED IN QUITTING?THINKING ABOUT QUITTING WOULD LIKE TO TRY TO QUIT SOON COUNSELED THE PATIENT ON SMOKING CESSATION, EDUCATION [id number]/19/2020 HOW MANY CIGARETTES A DAY DO YOU SMOKE?6-10 HOW SOON AFTER YOU WAKE UP DO YOU SMOKE YOUR FIRST CIGARETTE?6-30 MIN HOW OFTEN DO YOU SMOKE CIGARETTES?EVERY DAY PATIENT COUNSELED ON THE DANGERS OF TOBACCO USE AND URGED TO QUIT:10/19/2020 LATEX QUESTIONNAIRE LATEX ALLERGY : HAVE YOU EVER DEVELOPED ANY TYPE OF REACTION AFTER HANDLING LATEX PRODUCTS SUCH RUBBER GLOVES, CONDOMS, DIAPHRAGMS, BALLOONS, SOCKS, OR UNDERWEAR?NO LATEX ALLERGY : HAVE YOU EVER DEVELOPED ANY TYPE OF REACTION DURING OR AFTER DENTAL APPOINTMENT, VAGINAL/RECTAL EXAMINATION, SURGICAL PROCEDURE, OR ANY OTHER EXPOSURE?NO LATEX RISK : HAVE YOU EVER HAD ANY DIFFICULTY BREATHING OR HIVES AFTER EATING OR HANDLING ANY FRUITS, OR VEGETABLES; SUCH KIWI, BANANAS, STONE FRUITS, OR CHESTNUTSNO LATEX RISK : DO YOU HAVE A PREVIOUS PERSONAL HISTORY OF MORE THAN NINE SURGERIES, SPINA BIFIDA, OR REPEATED CATHERIZATIONS? NO LATEX RISK : ARE YOU FREQUENTLY EXPOSED TO LATEX PRODUCTS IN YOUR OCCUPATION?NO DATE ASKED : 09/29/2020 ALCOHOL SCREENING DID YOU HAVE A DRINK CONTAINING ALCOHOL IN THE PAST YEAR?YES HOW OFTEN DID YOU HAVE SIX OR MORE DRINKS ON ONE OCCASION IN THE PAST YEAR?NEVER (0 POINTS) HOW MANY DRINKS DID YOU HAVE ON A TYPICAL DAY WHEN YOU WERE DRINKING IN THE PAST YEAR?1 OR 2 (0 POINTS) HOW OFTEN DID YOU HAVE A DRINK CONTAINING ALCOHOL IN THE PAST YEAR?MONTHLY OR LESS (1 POINT) POINTS1 INTERPRETATIONNEGATIVE RECREATIONAL DRUG USE DRUG USE?YES HOW OFTEN AND HOW MUCH? MARIJIANA- DAILY CAFFEINE CAFFEINE USE?YES HOW OFTEN AND HOW MUCH? 36OZ COFFEE A DAY ORTHODOXY [id number] NONE LANGUAGE LANGUAGES SPOKEN:[place] LEARNING BARRIERS / SPECIAL NEEDS CHANGE FROM LAST VISIT?NO BARRIERS TO LEARNING?YES COMMENTS LIMITED READING ABILITY HEARING IMPAIRED?YES :HEARING AIDES VISION IMPAIRED?NO COGNITIVELY IMPAIRED?NO READINESS TO LEARN?YES LEARNING PREFERENCES?YES :BOOKLETS, HANDOUTS, DEMONSTRATION/VERBAL INSTRUCTION LEARNING CAPABILITIES PRESENT?YES EMOTIONAL BARRIERS?NO SPECIAL DEVICES?NO SOLAR ENERGY ENGINEER NEEDED?NO DOMESTIC VIOLENCE DO YOU FEEL SAFE IN YOUR ENVIRONMENT?YES PAIN CLINIC PFS, CLERGY, PUBLIC HEALTH REFERRALS HAS THE PATIENT BEEN EDUCATED REGARDING HIS/HER PLAN OF CARE?YES HAS THE PATIENT BEEN EDUCATED REGARDING PAIN, THE RISK FOR PAIN, THE IMPORTANCE OF EFFECTIVE PAIN MANAGEMENT, AND THE PAIN ASSESSMENT PROCESS?YES ADVANCE DIRECTIVE ADVANCE DIRECTIVE DISCUSSED WITH PATIENT:YES PT STATES THAT HE DOES NOT HAVE HCP AT THIS TIME, DECLINES INFORMATION OR ASSISTANCE WITH PAPERWORK. HOSPITALIZATION/MAJOR DIAGNOSTIC PROCEDURE DENIES PAST HOSPITALIZATION VITAL SIGNS WT 136.6 LBS, HT 67 IN, BMI 21.39 INDEX, BP 118/67 MM HG, HR 73 /MIN, RR 18 /MIN, TEMP 98.2 F, OXYGEN SAT % 97%, SAFE IN ENV? (Y/N) Y, NA INITIALS SC 14:16, REVIEWED BY: JSJ. ABDIFATAH RN. EXAMINATION GENERAL EXAMINATION: THE PATIENT IS ALERT, ORIENTED TIMES THREE AND COOPERATIVE. HEART SHOWS REGULAR RHYTHM, NO MURMURS AND NO GALLOPS. LUNGS ARE CLEAR TO AUSCULTATION. ASSESSMENTS MYALGIA, OTHER SITE - M79.18 (PRIMARY) TREATMENT MYALGIA, OTHER SITE MEDICATION: NORCO TABLET 5MG/325MG ORALLY (HYDROCODONE/ACETAMINOPHEN)HAY GARDINER 10/19/2020 3:59:58 PM > LOT: [id number], EXP: 01/2022 LEEROY HERNANDEZ 10/19/2020 4:02:59 PM > VERIFIED HAY GARDINER 10/19/2020 4:04:39 PM > ADMINISTERED MEDICATION: VALIUM TAB 10MG ORALLY (DIAZEPAM)HAY GARDINER 10/19/2020 4:00:32 PM > LOT: [id number], EXP: 06/20 LEEROY HERNANDEZ 10/19/2020 4:03:23 PM > VERIFIED HAY GARDINER 10/19/2020 4:05:02 PM > ADMINISTERED PROCEDURES PAIN NURSING RECORD PRE-PROCEDURE IV SITE N/A, PRE-PROCEDURE ORAL MEDICATIONS NORCO 5-325 MG & VALIUM 10 MG PROCEDURE IN ROOM 1408, PHYSICIAN IN ROOM 1628, START 1631, FINISH 1634, PHYSICIAN OUT OF ROOM 1635, OUT OF ROOM 1651, STEROID KENALOG, O2 RA, ECG N/A, PATIENT SHIELDED NO, SAFETY STRAP NO, PREP ALCOHOL BY DR. CAMACHO, IV INFUSED N/A, DRESSING TEGADERM BY Tay GARDINER RN LOC: HAY GARDINER 10/19/2020 4:32:22 PM > , 1. ALERT, ORIENTED RESP: HAY GARDINER 10/19/2020 4:32:26 PM > , 1. REGULAR, NO DYSPNEA COLOR: HAY GARDINER 10/19/2020 4:32:29 PM > , 1. PINK SKIN: HAY GARDINER 10/19/2020 4:32:33 PM > , 1. WARM, DRY POSITION: HAY GARDINER 10/19/2020 4:32:36 PM > , 4. OTHER VITALS: HAY GARDINER 10/19/2020 4:47:58 PM > 133/79, 69, 18, 99% DISCHARGE: POST PAIN 0, DRESSING SITE DRY AND INTACT, IV N/A, GAIT STEADY, TEACHING COMPLETED, PATIENT ACKNOWLEDGES UNDERSTANDING YES, PATIENT DISCHARGED AT 1651 PN TRIGGER POINT INJECTION WITH STEROIDS PRE PROCEDURE DIAGNOSIS 1. MYALGIA 2. PAIN AT BILATERAL NECK AREA AND BILATERAL THORACIC AREA POST PROCEDURE DIAGNOSIS 1. MYALGIA 2. PAIN AT BILATERAL NECK AREA AND BILATERAL THORACIC AREA PROCEDURE TRIGGER POINT INJECTION AT BILATERAL NECK AREA AND BILATERAL THORACIC AREA SURGEON DR. MARV CAMACHO DEHYDRATOR TENDER NONE ANESTHESIA LOCAL PRE PROCEDURE NOTE THE PATIENT HAS A HISTORY OF CHRONIC PAIN AT THE RIGHT AND LEFT NECK AREA AND RIGHT AND LEFT THORACIC AREA. I EVALUATED THE PATIENT AND REVIEWED THE CHART. THERE IS EVIDENCE OF BANDS OF TISSUE WITH RESTRICTION OF MOVEMENT AND PRESENCE OF TRIGGER POINT AT THE RIGHT AND LEFT NECK AREA AND RIGHT AND LEFT THORACIC AREA. I WENT OVER THE RISKS, ALTERNATIVES, AND BENEFITS ASSOCIATED WITH THIS PROCEDURE. THE PATIENT WOULD LIKE TO PROCEED AND GIVE CONSENT TO PERFORMED THE PROCEDURE. I DISCUSSED THAT THE USE OF STEROIDS MAY CONTRIBUTE TO IMMUNOSUPPRESSION OF THE PATIENT'S BODY AGAINST INFECTIONS SUCH COVID-19. THE PATIENT IS AWARE OF THE POTENTIAL COMPLICATIONS ASSOCIATED WITH THIS VIRUS, INCLUDING, BUT NOT LIMITED TO, . THE PATIENT DENIES UNEXPLAINABLE WEIGHT LOSS, FEVER, CHILLS, OR NEW CHANGES IN URINARY OR BOWEL CONTROL. THE PATIENT IS COVID-19 NEGATIVE DESCRIPTION OF PROCEDURE THE PATIENT WAS BROUGHT TO THE PROCEDURE ROOM AND PLACED IN THE SITTING POSITION. THE AREA WAS CLEANED WITH ALCOHOL. THE PROCEDURE WAS DONE USING ASEPTIC STERILE TECHNIQUE. A TIMEOUT WAS PERFORMED WHERE LATERALITY AND THE SITE OF THE PROCEDURE WERE CHECKED AND CONFIRMED WITH EVERYONE IN THE ROOM. USING A 25-GAUGE NEEDLE, TRIGGER POINTS WERE INJECTED AT THE RIGHT AND LEFT NECK AREA AND RIGHT AND LEFT THORACIC AREA WITH A TOTAL OF 40 ML OF BUPIVACAINE 0.25% AND KENALOG 40 MG. THE MEDICATIONS WERE VERIFIED WITH THE NURSE. THERE WAS NO EVIDENCE OF BLOOD OR PARESTHESIA DURING THE PROCEDURE. THE PATIENT WAS SENT TO THE RECOVERY ROOM. THE PATIENT WAS MOVING THE EXTREMITIES AND DOING WELL. THERE WERE NO COMPLICATIONS DURING THE PROCEDURE. ESTIMATED BLOOD LOSS WAS LESS THAN 5 ML POST PROCEDURE NOTE THE PROCEDURE DONE WAS DISCUSSED WITH THE PATIENT. THE PATIENT WILL BE SEEN IN A FOLLOW UP IN THE NEXT FEW WEEKS. I AM LOOKING FOR LONG LASTING PAIN RELIEF FOR THE PATIENT WITH THIS INTERVENTION. INSTRUCTIONS WERE GIVEN, QUESTIONS WERE ANSWERED, AND THE PATIENT EXPRESSED UNDERSTANDING AND AGREES WITH THE PLAN. I, JEFRY GASPAR, DOCUMENTED THE ABOVE INFORMATION ACTING A SCRIBE FOR DR. CAMACHO. I HAVE REVIEWED THE ABOVE DOCUMENT, WRITTEN BY JEFRY GASPAR, AMMUNITION SPECIALIST, AND I VERIFY THAT IT IS ACCURATE PROCEDURE CODES 40616 INJECT TRIGGER POINTS 3/> DISPOSITION & COMMUNICATION FOLLOW UP FOLLOW UP WITH GUEST SERVICE SUPERVISOR (REASON: POST TPI BILATERAL NECK AND BILATERAL THORACIC) ELECTRONICALLY SIGNED BY MARV CAMACHO MD, MD ON 10/20/2020 AT 01:54 PM EST DISCLAIMER : THIS IS A VISIT SUMMARY EXTRACTED FROM THE [employer] CHART. IT IS NOT A COPY OF THE [employer] PROGRESS NOTE. MARINA
== END ==
LOC: M PAIN 14:30
PROVIDERS: ATTEND Anesthesiology
DX: M79.18 Myalgia, other site (principal); F41.9 Anxiety disorder, unspecified; M54.2 Cervicalgia; F17.210 Nicotine dependence, cigarettes, uncomplicated; Z79.899 Other long term (current) drug therapy; Z91.048 Other nonmedicinal substance allergy status
CPT/HCPCS: 20553; J3301

== ENCOUNTER → 2020-11-16 | Outpatient (CLI) | payer OTHER, MEDICAID ==
[~2020-11-16] MED LIST changes: -BUPIVACAINE HCL 0.25% 10ML VIAL As Ordered ONE; -BUPIVACAINE HCL 0.25% 30ML VIAL As Ordered ONE; -NORCO, ANEXSIA 5/325MG TABLET (HYDROcodone/ACETAMINOPHEN) As Ordered ONE; -TRIAMCINOLONE ACETONIDE SUSP 40 MG/ML VIAL (J3301) As Ordered ONE; -diazePAM 5 MG TAB As Ordered ONE
--- NOTE | 2020-11-19 23:18 | ECWPNPC ---
PATIENT NAME: ROSEMARIE BLAND : 1990 GENDER: MALE VISIT DATE: 11/16/2020 DISCHARGE DATE: 11/16/20 1426 VISIT LOCKED DATE TIME: PHYSICIAN: JUSTICE GUEVARA RESOURCE: JUSTICE GUEVARA REASON FOR APPOINTMENT 1. NECK HISTORY OF PRESENT ILLNESS GENERAL: HERE FOR POST PROCEDURE FOLLOW-UP. HAD TRIGGER POINT INJECTIONS BILATERAL NECK ON 10/19/2020. REPORTING IMPROVEMENT IN PAIN CONTROL SINCE TRIGGER POINT INJECTIONS. RATING PAIN LEVEL 2/10 VAS. CONTINUES TO DO HOME STRETCHING EXERCISES ESTABLISHED WITH PHYSICAL THERAPY. USING TOPICAL BIOFREEZE WHICH IS HELPFUL. -. FALL RISK SCREENING: SCREENING :NO FALLS REPORTED IN THE LAST YEAR PAIN SCREENING: PATIENT HAS A COMPLAINT OF ACUTE OR CHRONIC PAIN :YES LOCATION OF PAIN:NECK, LEFT SHOULDER, RIGHT SHOULDER, UPPER BACK INTENSITY OF PAIN (SCALE OF 1 TO 10):3 WHAT DOES YOUR PAIN FEEL LIKE:ACHING DURATION:CONTINOUS, ALL DAY PAIN IS INCREASED BY:ACTIVITIES, OTHERS BENDING OVER PAIN IS DECREASED BY:OTHERS LAYING DOWN NURSING NOTE: -. PAIN CENTER INTAKE QUESTIONS: DO YOU HAVE A HISTORY OF MRSA? :NO DO YOU TAKE A BLOOD THINNERS? :NO DO YOU HAVE ANY BLEEDING DISORDERS? :NO ANY NEW NUMBNESS OR WEAKNESS IN YOUR LEGS OR ARMS? :NO ANY PACEMAKER,DEFIBRILLATOR, OR DORSAL COLUMN STIMULATOR? :NO DO YOU HAVE ANY RASHES OR OPEN SORES? :NO ARE YOU ALLERGIC TO IV DYE? :NO ARE YOU DIABETIC? :NO ANY NEW PROBLEMS WITH YOUR MEDICATIONS? :NO HAVE YOU RECEIVED A VACCINE IN THE PAST 30 DAYS? :NO DO YOU PLAN TO RECEIVE A VACCINE IN THE NEXT 21 DAYS? :NO DO YOU NEED ANY PRESCRIPTION? :NO DO YOU TAKE ANY IMMUNOSUPPRESSIVE MEDICATIONS? :NO IS THERE A CHANCE YOU COULD BE ? :NO ARE YOU BREAST FEEDING? :NO CURRENT MEDICATIONS TAKING DEPAKOTE 500 MG TABLET DELAYED RELEASE 1 TABLET ORALLY TWICE A DAY TAKING CYMBALTA 30 MG CAPSULE DELAYED RELEASE PARTICLES 1 CAPSULE ORALLY ONCE A DAY TAKING TIZANIDINE HCL 2 MG TABLET 1 TABLET NEEDED ORALLY THREE TIMES A DAY NOT-TAKING MOBIC 7.5 MG TABLET 1 TABLET ORALLY ONCE A DAY NOT-TAKING NAPROXEN SODIUM 550 MG TABLET 1 TABLET ORALLY TWICE A DAY NOT-TAKING BACTRIM DS 800-160 TABLET 1 TABLET ORALLY TWICE A DAY NOT-TAKING NAPROXEN 500 MG TABLET 1 TABLET NEEDED ORALLY EVERY 12 HRS NOT-TAKING IBUPROFEN 200 MG TABLET 1 TABLET WITH FOOD OR MILK NEEDED ORALLY EVERY 6 HRS MEDICATION LIST REVIEWED AND RECONCILED WITH THE PATIENT PAST MEDICAL HISTORY MEMORY IMPAIRMENT INJURY OF BLOOD VESSELS OF HEAD, NEC, SUBS TRANSIENT ALTERATION OF AWARENESS SYNCOPE AND COLLAPSE CERVICALGIA BILAT CARPAL TUNNEL SYNDROME SLEEP DISORDER ANXIETY ALLERGIES CHLORINE: EYEDAMAGE - SIDE EFFECTS SURGICAL HISTORY RIGHT WRIST CYST DOUBLE HERNIA SURGERY RIGHT WRIST CYST REMOVED 2003 & 2006 FAMILY HISTORY FATHER: ALIVE MOTHER: ALIVE, DIAGNOSED WITH UNSPECIFIED CEREBRAL ARTERY OCCLUSION WITH CEREBRAL INFARCTION SIBLINGS: OVARIAN CANCER PATERNAL GRAND FATHER: PROSTATE, OTHER MALIGNANT NEOPLASM OF UNSPECIFIED SITE 2 SISTER(S) . SOCIAL HISTORY GENERAL: TOBACCO USE ARE YOU A:CURRENT SMOKER ARE YOU INTERESTED IN QUITTING?NOT READY TO QUIT HOW MANY CIGARETTES A DAY DO YOU SMOKE?6-10 HOW SOON AFTER YOU WAKE UP DO YOU SMOKE YOUR FIRST CIGARETTE?6-30 MIN HOW OFTEN DO YOU SMOKE CIGARETTES?EVERY DAY PATIENT COUNSELED ON THE DANGERS OF TOBACCO USE AND URGED TO QUIT:11/16/2020 LATEX QUESTIONNAIRE LATEX ALLERGY : HAVE YOU EVER DEVELOPED ANY TYPE OF REACTION AFTER HANDLING LATEX PRODUCTS SUCH RUBBER GLOVES, CONDOMS, DIAPHRAGMS, BALLOONS, SOCKS, OR UNDERWEAR?NO LATEX ALLERGY : HAVE YOU EVER DEVELOPED ANY TYPE OF REACTION DURING OR AFTER DENTAL APPOINTMENT, VAGINAL/RECTAL EXAMINATION, SURGICAL PROCEDURE, OR ANY OTHER EXPOSURE?NO LATEX RISK : HAVE YOU EVER HAD ANY DIFFICULTY BREATHING OR HIVES AFTER EATING OR HANDLING ANY FRUITS, OR VEGETABLES; SUCH KIWI, BANANAS, STONE FRUITS, OR CHESTNUTSNO LATEX RISK : DO YOU HAVE A PREVIOUS PERSONAL HISTORY OF MORE THAN NINE SURGERIES, SPINA BIFIDA, OR REPEATED CATHERIZATIONS? NO LATEX RISK : ARE YOU FREQUENTLY EXPOSED TO LATEX PRODUCTS IN YOUR OCCUPATION?NO DATE ASKED : 11/16/2020 ALCOHOL SCREENING DID YOU HAVE A DRINK CONTAINING ALCOHOL IN THE PAST YEAR?YES HOW OFTEN DID YOU HAVE SIX OR MORE DRINKS ON ONE OCCASION IN THE PAST YEAR?NEVER (0 POINTS) HOW MANY DRINKS DID YOU HAVE ON A TYPICAL DAY WHEN YOU WERE DRINKING IN THE PAST YEAR?1 OR 2 (0 POINTS) HOW OFTEN DID YOU HAVE A DRINK CONTAINING ALCOHOL IN THE PAST YEAR?MONTHLY OR LESS (1 POINT) POINTS1 INTERPRETATIONNEGATIVE RECREATIONAL DRUG USE DRUG USE?YES HOW OFTEN AND HOW MUCH? MARIJIANA- DAILY CAFFEINE CAFFEINE USE?YES HOW OFTEN AND HOW MUCH? 36OZ COFFEE A DAY VOODOO [id number] NONE LANGUAGE LANGUAGES SPOKEN:YORUBA LEARNING BARRIERS / SPECIAL NEEDS CHANGE FROM LAST VISIT?NO BARRIERS TO LEARNING?YES COMMENTS LIMITED READING ABILITY HEARING IMPAIRED?YES :HEARING AIDES VISION IMPAIRED?NO COGNITIVELY IMPAIRED?NO READINESS TO LEARN?YES LEARNING PREFERENCES?YES :BOOKLETS, HANDOUTS, DEMONSTRATION/VERBAL INSTRUCTION LEARNING CAPABILITIES PRESENT?YES EMOTIONAL BARRIERS?NO SPECIAL DEVICES?NO END FINDER FORMING DEPARTMENT NEEDED?NO PAIN CLINIC PFS, CLERGY, PUBLIC HEALTH REFERRALS HAS THE PATIENT BEEN EDUCATED REGARDING HIS/HER PLAN OF CARE?YES HAS THE PATIENT BEEN EDUCATED REGARDING PAIN, THE RISK FOR PAIN, THE IMPORTANCE OF EFFECTIVE PAIN MANAGEMENT, AND THE PAIN ASSESSMENT PROCESS?YES ADVANCE DIRECTIVE ADVANCE DIRECTIVE DISCUSSED WITH PATIENT:YES PT STATES THAT HE DOES NOT HAVE HCP AT THIS TIME, DECLINES INFORMATION OR ASSISTANCE WITH PAPERWORK. HOSPITALIZATION/MAJOR DIAGNOSTIC PROCEDURE DENIES PAST HOSPITALIZATION REVIEW OF SYSTEMS CONSTITUTIONAL: ANY RECENT FEVER NO . CHILLS NO . WEIGHT CHANGE OF UNKNOWN REASONS NO . GASTROENTEROLOGY: NEW UNEXPLAINABLE CHANGES IN BOWEL CONTROL NO . CONSTIPATION NO . GENITOURINARY: ANY NEW CHANGE IN BLADDER CONTROL? NO . NEUROLOGY: NEW ONSET DIZZINESS OR NEUROLOGICAL CHANGES NOT MENTIONED NO . NEW NUMBNESS OR PAIN PATTERNS NOT MENTIONED AND PERTINENT TO TODAY'S VISIT NO . CARDIOLOGY: NEW CHEST PRESSURE NO . NEW CHEST PAIN NO . RESPIRATORY: UNEXPLAINABLE COUGH NO . NEW SHORTNESS OF BREATH NO . VITAL SIGNS WT 131.4 LBS, HT 67 IN, BMI 20.58 INDEX, BP 104/60 MM HG, HR 89 /MIN, RR 18 /MIN, TEMP 96.0 F, OXYGEN SAT % 98%, SAFE IN ENV? (Y/N) Y, NA INITIALS AW 1351, REVIEWED BY: JSJ. ABDIFATAH RN. EXAMINATION GENERAL EXAMINATION: GENERALAWAKE,ALERT ,PLEASANT . PSYCHAFFECT NORMAL . LUNGS:LUNG SOL ARE CLEAR TO AUSCULTATION BILATERALLY. GOOD MOVEMENT OF AIR . HEART:S1, S2 IN A REGULAR RATE AND RHYTHM. NO SIGNIFICANT MURMURS, RUBS OR GALLOPS NOTED . ASSESSMENTS OTHER CHRONIC PAIN - G89.29 (PRIMARY) MYALGIA, OTHER SITE - M79.18 TREATMENT OTHER CHRONIC PAIN PAIN PROCEDURE LOGDATE OF [id number]/19/2020PROCEDURE:TRIGGER POINT INJECTIONS BILATERAL NECK & BILATERAL THORACICAMOUNT OF PRE SEDATENORCO 5/325 MG & VALIUM 10 MGRESULT:SIGNIFICANT IMPROVEMENT CONTINUES TODAY NOTES: CONTINUE HOME EXERCISE AND STRETCHING. CONTINUE USE OF BIOFREEZE. FOLLOW-UP IS SCHEDULED IN 3 MONTHS. PATIENT IS ENCOURAGED TO CALL PAIN CLINIC IF PAIN INCREASES TO BE CONSIDERED FOR A SOONER APPOINTMENT. PROCEDURE CODES [id number] ESTABILISHED PATIENT FORMERLY [facility] CHARGE DISPOSITION & COMMUNICATION FOLLOW UP 3 MONTHS (REASON: CHRONIC NECK PAIN/DOES WELL WITH TRIGGER POINT INJECTIONS) ELECTRONICALLY SIGNED BY ALEXIS TAMEZ ON 11/19/2020 AT 04:13 PM EST DISCLAIMER : THIS IS A VISIT SUMMARY EXTRACTED FROM THE [employer] CHART. IT IS NOT A COPY OF THE [employer] PROGRESS NOTE. MARINA
== END ==
LOC: M PAIN 13:45
PROVIDERS: ATTEND Nurse Practitioner Family
DX: G89.29 Other chronic pain (principal); M79.18 Myalgia, other site; F17.210 Nicotine dependence, cigarettes, uncomplicated; Z86.59 Personal history of other mental and behavioral disorders; Z91.09 Other allergy status, other than to drugs and biological substances; Z79.899 Other long term (current) drug therapy

== ENCOUNTER 2022-05-08 19:24 | Emergency (ER) | payer OTHER, MEDICAID ==
[~2022-05-08] VITALS: Ht 167.6 cm; Wt 61.4 kg
[2022-05-09 00:30] VITALS: BP 120/72
== END 2022-05-09 00:30 | disposition home or self-care (01) ==
LOC: M ED 19:24
DX: S00.31XA Abrasion of nose, initial encounter (principal); S09.90XA Unspecified injury of head, initial encounter; W22.8XXA Striking against or struck by other objects, initial encounter; Y92.9 Unspecified place or not applicable; Y93.9 Activity, unspecified; Y99.0 Civilian activity done for income or pay; R56.9 Unspecified convulsions

== ENCOUNTER → 2022-09-06 | Outpatient (REF) | LOC: M LAB 10:23 | PROVIDERS: ATTEND Nurse Practitioner Adult Health | DX: Z02.1 Encounter for pre-employment examination (principal) ==

== ENCOUNTER → 2023-08-08 | Outpatient (REF) | payer OTHER, MEDICAID ==
[2023-08-08 14:20] LABS: BASO % 0.4 % (0.0-1.0); EOS # 0.3 10^3/uL (0.0-0.5); EOS % 4.5 % (0.0-3.0); HEMATOCRIT 46.3 % (42.0-52.0); HEMOGLOBIN 15.4 g/dl (13.5-17.5); LYMPH # 2.5 10^3/uL (1.5-5.0); LYMPH % 35.5 % (24.0-44.0); MEAN CORPUSCULAR HEMOGLOBIN 30.1 pg (27.0-33.0); MEAN CORPUSCULAR HGB CONC 33.3 g/dl (32.0-36.5); MEAN CORPUSCULAR VOLUME 90.6 fl (80.0-96.0); MONO # 0.6 10^3/uL (0.0-0.8); MONO % 8.3 % (2.0-8.0); NEUTROPHILS # 3.5 10^3/uL (1.5-8.5); NEUTROPHILS % 50.7 % (36.0-66.0); PLATELET COUNT, AUTOMATED 359 10^3/uL (150-450); RED BLOOD COUNT 5.11 10^6/uL (4.30-6.10); WHITE BLOOD COUNT 6.9 10^3/uL (4.0-10.0)
[2023-08-08 14:30] LABS: ALBUMIN 3.9 G/DL (3.2-5.2); ALKALINE PHOSPHATASE 86 U/L (46-116); ALT/SGPT 34 U/L (7.0-40); AST/SGOT 23 U/L (<34); BILIRUBIN,TOTAL 0.2 MG/DL (0.3-1.2); BLOOD UREA NITROGEN < 5 MG/DL (9-23); CALCIUM LEVEL 9.9 MG/DL (8.5-10.1); CARBON DIOXIDE LEVEL 31 MMOL/L (20-31); CHLORIDE LEVEL 104 MMOL/L (98-107); CREATININE FOR GFR 0.72 MG/DL (0.70-1.30); GLOMERULAR FILTRATION RATE > 60.0 (>60); GLUCOSE, FASTING 93 MG/DL (60-100); POTASSIUM SERUM 4.6 MMOL/L (3.5-5.1); SODIUM LEVEL 140 MMOL/L (136-145); TOTAL PROTEIN 6.9 G/DL (5.7-8.2)
== END ==
LOC: M LAB REF 11:33
PROVIDERS: ATTEND Family Medicine Addiction Medicine
DX: G40.909 Epilepsy, unspecified, not intractable, without status epilepticus (principal)

== ENCOUNTER → 2024-01-30 | Outpatient (REF) | payer OTHER, MEDICAID ==
[2024-01-30 12:35] LABS: BASO % 0.4 % (0.0-1.0); EOS # 0.1 10^3/uL (0.0-0.5); EOS % 1.2 % (0.0-3.0); HEMATOCRIT 42.3 % (42.0-52.0); HEMOGLOBIN 14.2 g/dl (13.5-17.5); LYMPH # 2.3 10^3/uL (1.5-5.0); LYMPH % 40.7 % (24.0-44.0); MEAN CORPUSCULAR HGB CONC 33.6 g/dl (32.0-36.5); MEAN CORPUSCULAR VOLUME 89.2 fl (80.0-96.0); MONO # 0.5 10^3/uL (0.0-0.8); MONO % 8.1 % (2.0-8.0); NEUTROPHILS # 2.8 10^3/uL (1.5-8.5); NEUTROPHILS % 49.4 % (36.0-66.0); PLATELET COUNT, AUTOMATED 316 10^3/uL (150-450); RED BLOOD COUNT 4.74 10^6/uL (4.30-6.10); WHITE BLOOD COUNT 5.7 10^3/uL (4.0-10.0)
[2024-01-30 12:40] LABS: VALPROIC ACID (DEPAKOTE) 76.6 UG/ML (50.0-100.0)
[2024-01-30 12:44] LABS: ALBUMIN 4.1 G/DL (3.2-5.2); ALKALINE PHOSPHATASE 64 U/L (46-116); ALT/SGPT 22 U/L (7.0-40); AST/SGOT 23 U/L (<34); BILIRUBIN,TOTAL 0.4 MG/DL (0.3-1.2); BLOOD UREA NITROGEN 9 MG/DL (9-23); CALCIUM LEVEL 9.4 MG/DL (8.5-10.1); CARBON DIOXIDE LEVEL 30 MMOL/L (20-31); CHLORIDE LEVEL 104 MMOL/L (98-107); GLOMERULAR FILTRATION RATE > 60.0 (>60); GLUCOSE, FASTING 106 MG/DL (60-100); POTASSIUM SERUM 4.2 MMOL/L (3.5-5.1); SODIUM LEVEL 138 MMOL/L (136-145); TOTAL PROTEIN 7.2 G/DL (5.7-8.2)
== END ==
LOC: M LAB REF 11:38
PROVIDERS: ATTEND Family Medicine Addiction Medicine
DX: G40.909 Epilepsy, unspecified, not intractable, without status epilepticus (principal)

== ENCOUNTER 2024-04-01 08:10 | Day surgery (SDC) | payer OTHER ==
[~2024-04-01] VITALS: Ht 167.6 cm; Wt 62.8 kg
[~2024-04-01 08:10] MED LIST changes: +DIVA500T94 PO; +DULO1CAP6 PO
[2024-04-01] MEDS: LR 1,000 ML IV SCH (08:56)
[2024-04-01] MEDS ORDERED: ACETAMINOPHEN 1000MG 100ML IV BAG As Ordered ONE (09:28)
[2024-04-01] MEDS ORDERED: LIDOCAINE 2% 100MG/5ML SDV (FOR ANES.) As Ordered ONE (09:28)
[2024-04-01] MEDS ORDERED: KETOROLAC 60MG 2ML VIAL As Ordered ONE (09:28)
[2024-04-01] MEDS ORDERED: fentaNYL 100 MCG/2 ML INJECTION As Ordered ONE (09:28)
[2024-04-01] MEDS ORDERED: propofoL 200 MG/20 ML VIAL As Ordered ONE (09:28)
[2024-04-01] MEDS ORDERED: MIDAZOLAM INJ 2MG/2ML VIAL As Ordered ONE (09:29)
[2024-04-01] MEDS: ceFAZolin SOD 2 GM in IV 1 EA IV ONE (10:31)
[2024-04-01] MEDS: LIDOCAINE 1% SDV 30ML VIAL As Ordered ONE (10:47)
[2024-04-01] MEDS ORDERED: ONDANSETRON 4MG 2ML VIAL IV PRN (11:40)
[2024-04-01] MEDS ORDERED: MORPHINE 2 MG/ML 1ML VIAL IV PRN (11:40)
[2024-04-01] MEDS ORDERED: fentaNYL 100 MCG/2 ML INJECTION IV PRN (11:40)
[2024-04-01 11:44] VITALS: BP 102/53; TEMP 98; O2SAT 97
[2024-04-01] MEDS: oxyCODONE 5MG TAB PO PRN (11:55)
== END 2024-04-01 12:15 | disposition home or self-care (01) ==
LOC: M SDC 08:10
PROVIDERS: ATTEND Podiatrist Foot & Ankle Surgery
DX: M20.11 Hallux valgus (acquired), right foot (principal); M21.611 Bunion of right foot; R56.9 Unspecified convulsions; Z79.899 Other long term (current) drug therapy; Z87.891 Personal history of nicotine dependence
CPT/HCPCS: 28297; 88300; C1713; J0131; J0665; J0690; J1885; J2250; J3010

== ENCOUNTER → 2025-04-14 | Outpatient (REF) | payer OTHER | LOC: M LAB REF 12:28 | PROVIDERS: ATTEND Nurse Practitioner Family | DX: R42 Dizziness and giddiness (principal) ==

== ENCOUNTER → 2025-09-14 | Outpatient (CLI) | payer OTHER ==
[~2025-09-14] MED LIST changes: +DIVA-41 PO; -DIVA500T94 PO
== END ==
LOC: M RAD 15:04
PROVIDERS: ATTEND Family Medicine Addiction Medicine
DX: M25.511 Pain in right shoulder (principal)